=== PATIENT | female | born 1940 | race Caucasian/White ===

== ENCOUNTER → 2019-10-26 09:14 | Outpatient (BNVA) | payer MEDICARE, BC, SELFPAY | PROVIDERS: Family Provider Family Medicine; PCP Family Medicine; Visit Provider Specialist | DX: Z47.1 Aftercare following joint replacement surgery (principal); Z96.653 Presence of artificial knee joint, bilateral | CPT/HCPCS: 73560; 73565 ==

== ENCOUNTER 2019-11-07 06:00 | Outpatient (RCR) | payer MEDICARE, BC, SELFPAY | END 2019-11-10 23:59 | disposition home or self-care (01) | LOC: SPT 06:00 | PROVIDERS: Family Provider Family Medicine; PCP Family Medicine; Visit Provider Specialist | DX: Z47.1 Aftercare following joint replacement surgery (principal); Z96.651 Presence of right artificial knee joint | CPT/HCPCS: 97110; 97162 ==

== ENCOUNTER 2019-11-11 06:00 | Outpatient (RCR) | payer MEDICARE, BC, SELFPAY | END 2019-12-09 23:59 | disposition home or self-care (01) | LOC: SPT 06:00 | PROVIDERS: Family Provider Family Medicine; PCP Family Medicine; Visit Provider Specialist | DX: Z47.89 Encounter for other orthopedic aftercare (principal); Z96.653 Presence of artificial knee joint, bilateral; M25.562 Pain in left knee | CPT/HCPCS: 97110 ==

== ENCOUNTER → 2020-06-10 11:06 | Outpatient (BNVA) | payer MEDICARE, BC, SELFPAY | PROVIDERS: Family Provider Family Medicine; PCP Family Medicine; Referring Provider Dermatology; Visit Provider Dermatology | DX: Z85.828 Personal history of other malignant neoplasm of skin (principal); L71.9 Rosacea, unspecified; L57.0 Actinic keratosis | CPT/HCPCS: 17000; 17003; 99203 ==

== ENCOUNTER 2020-07-03 14:02 | Outpatient (CLI) | payer MEDICARE, BC, SELFPAY ==
[2020-07-03 14:58] LABS: Add Urine Microscopic? YES; Bilirubin Urine 1+ (Negative); Blood Urine Neg (Negative); Glucose Urine UA Norm (Normal); Ketones Urine 1+ (Negative); Leukocyte Esterase Urine Negative (Negative); Nitrate Urine Negative (Negative); Protein Urine Neg (Negative); Specific Gravity, Urine 1.025 (1.005-1.030); Urine Appearance SL Hazy (CLEAR); Urine Color Yellow (Yellow); Urobilinogen Urine Neg (Negative); pH Urine 5 (5-7)
[2020-07-03 14:59] LABS: Bacteria Urine 1+ /hpf; Calcium Oxalate Crystals Urine 0-4 /hpf; Mucus Urine 3+ /hpf; Squamous Epithelial Cell Urine 0-4 /hpf (0-5); WBC Urine 0-4 /hpf (0-5)
[2020-07-03 15:00] LABS: Add Urine Culture? No
== END 2020-07-03 14:03 | disposition home or self-care (01) ==
LOC: LAB 14:08
PROVIDERS: PCP Family Medicine; Visit Provider Family Medicine
DX: N39.0 Urinary tract infection, site not specified (principal)
CPT/HCPCS: 81001; 87086

== ENCOUNTER 2020-07-14 14:01 | Emergency (ER) | payer MEDICARE, BC, SELFPAY ==
[2020-07-14 14:02] VITALS: BP 133/74; PULSE 79; RESP 18; TEMP 36.7; O2SAT 93; BMI 42.5
--- NOTE | 2020-07-14 14:04 | ECG_ITS ---
[facility] Test Date: 2020-07-14 Pat Name: Leatha Weiner Department: Room: Gender: Female [employer] Maker: : 1940 Requested By: Marlene Brennan Order Number: [id number] Jessica MD: Fito Branard M.D. Measurements Intervals Scroggins Rate: 72 P: 53 MD: 160 QRS: 1 QRSD: 92 T: 33 QT: 420 QTc: 462 Interpretive Statements SINUS RHYTHM POSSIBLE LEFT ATRIAL ENLARGEMENT [-0.1mV P WAVE IN V1/V2] MODERATE ST DEPRESSION [0.05+ mV ST DEPRESSION] Compared to ECG 03/17/2019 18:18:09 ST (T wave) deviation now present Electronically Signed On 07-14-2020 20:19:08 CDT by Fito Barnard M.D. [email or web address]
--- NOTE | 2020-07-14 14:04 | CTR_ITS ---
PROCEDURE INFORMATION: Exam: CT Head Without Contrast Exam date and time: 07/14/2020 2:05 PM Age: 80 years old Clinical indication: Speech disturbance and weakness, extremity and weakness, facial; Patient HX: Left side weakness with slurred speech today; Additional info: Symptoms of acute stroke TECHNIQUE: Imaging protocol: Computed tomography of the head without contrast. Radiation optimization: All CT scans at this facility use at least one of these dose optimization techniques: automated exposure control; mA and/or kV adjustment per patient size (includes targeted exams where dose is matched to clinical indication); or iterative reconstruction. COMPARISON: CT head wo con* [id number] 04/14/2019 6:20 PM RADIATION DOSE METRICS: Total DLP (mGy-cm): 830.35 FINDINGS: Brain: There is no acute intracranial hemorrhage. There is lucency in the cerebral white matter, likely microvascular disease although non-specific. Dueñas white differentiation is intact. There are no extra-axial fluid collections. No evidence of mass. There is no mass effect or midline shift. Cerebral ventricles: The ventricles and sulci are enlarged, consistent with volume loss / atrophy. No hydrocephalus. Bones/joints: No acute fracture. Paranasal sinuses: Visualized sinuses are unremarkable. No fluid levels. Mastoid air cells: No significant mastoid effusion. Vasculature: There is vascular calcification. Soft tissues: Unremarkable as visualized. CT/CT head wo con* [id number] IMPRESSION: 1. No evidence of acute intracranial abnormality. No evidence of acute infarction, hemorrhage, or mass. [place] Stroke Program Early CT Score (ASPECTS) = 10. 2. Atrophy and microvascular disease. Radiation Dose CTDIVOL = (mGy): DLP = 830.35 (mGy-cm)
--- NOTE | 2020-07-14 14:12 | ED_ITS ---
HPI - Neuro Symptoms/Deficit General: Chief Complaint: Neuro Symptoms/Deficit Stated Complaint: poss stroke Time Seen by Provider: 07/14/20 14:05 History of Present Illness: HPI Narrative: 80-year-old female presents with some reported left-sided weakness and facial droop. Patient is at the senior living and brought in by EMS. intermediate reports that they noticed it around 115. That by the time EMS arrived her facial droop her weakness had resolved. She does complain of some mild left-sided facial numbness to EMS that resolved prior to arrival to the ER. Patient reports that she has had recurrent similar symptoms for the last couple months. The last Wednesday she saw her physician for this and ordered a bunch of test. She is scheduled to see him again in 2 days. Patient has no complaints at this time. 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 Social History Smoking and tobacco status: never smoked Alcohol intake: never NIH stroke score NIHSS: Level Of Consciousness - 1a: 0 Level Of Consciousness Questions - 1b: Both Correct Level Of Consciousness Commands - 1c: Both Correct Best Gaze - 2: Normal Facial Palsy - 4: Minor Paralysis Motor Arm Right - 5: No Drift Motor Arm Left - 5: No Drift Motor Leg Right - 6: No Drift Motor Leg Left - 6: No Drift Sensory - 8: Normal Best Language - 9: No Aphasia Dysarthia - 10: Normal Extinction And Inattention - 11: 0 Physical Exam Const: COMMON NORMALS: no acute distress, patient oriented x3 and alert GENERAL APPEARANCE: cooperative and comfortable HENMT: COMMON NORMALS: normocephalic, atraumatic and hearing grossly normal bilaterally HEAD & SCALP: normocephalic and atraumatic Neck/C-Spine: COMMON NORMALS: full ROM and no lymphadenopathy Chest: COMMONS NORMALS: normal palpation of entire chest wall Resp: COMMON NORMALS: normal respiratory effort, No retractions and No use of accessory muscles Cardio: COMMON NORMALS: regular rate and regular rhythm RATE: regular rate RHYTHM: regular rhythm GI: COMMON NORMALS: Normal to inspection, nondistended, normoactive bowel sounds present, Soft to palpation and non-tender PALPATION: Yes Soft to palpation : COMMON NORMALS: Yes no CVA tenderness BLADDER/KIDNEY EXAM: Yes no CVA tenderness Back/Pelvis: COMMON NORMALS: no CVA tenderness Extremity: COMMON NORMALS: full ROM Neuro: COMMON NORMALS: patient oriented x3, CN's II-XII intact bilaterally, moves all extremities, no focal motor deficits and no sensory deficits noted SENSORIUM/ORIENTATION: Yes alert Psych: COMMON NORMALS: mental status grossly normal, Normal thought process present, cooperative and normal affect THOUGHT PROCESS: Normal thought process present Skin: COMMON NORMALS: no rashes or lesions noted GENERAL SKIN EXAM: no rashes or lesions noted Course Vital Signs: Vital signs: Vital Signs Temperature 98.0 F 07/14/20 14:02 Pulse Rate 79 07/14/20 14:02 Respiratory Rate 18 07/14/20 14:02 Blood Pressure 133/74 07/14/20 14:02 Pulse Oximetry 93 07/14/20 14:02 MDM - Neuro Symptoms/Deficit MDM Narrative: Medical decision making narrative: Patient history consistent with her recurrent TIAs that she is currently being worked up on an outpatient basis. This time patient has no significant physical finding. She has a negative head CT with no acute findings on her labs. Patient will be discharged back to the senior living. She should keep her appointment Wednesday with her physician to continue to work-up her recurrent symptoms. EKG NSR, hr 72, unspecific changes, no acute findings Lab Data: Attestation: I reviewed the patient's lab results. Labs: Lab Results 07/14/20 07/14/20 07/14/20 Range/Units 14:11 14:11 14:11 WBC 4.9 (4.0-10.0) 10^3/ uL RBC 3.99 L (4.1-5.3) 10^6/u L Hgb 11.8 (11.5-15.3) g/dL Hct 36.9 L (37.0-47.0) % MCV 92.5 (81-99) fL MCH 29.6 (28.0-34.0) pg MCHC 32.0 (30.0-36.0) g/dL RDW 13.8 (12.1-15.1) % Plt Count 302 (130-400) 10^3/c mm MPV 9.2 (7.4-10.4) fL Neut % (Auto) 59.0 % Lymph % (Auto) 28.6 % Larue % (Auto) 11.6 % Eos % (Auto) 0.2 % Baso % (Auto) 0.4 % Neut # (Auto) 2.89 (1.8-7.7) 10^3/u L Lymph # (Auto) 1.4 (0.8-4.8) 10^3/u L Larue # (Auto) 0.6 (0.2-0.9) 10^3/u L Eos # (Auto) 0.0 (0.0-0.8) 10^3/u L Baso # (Auto) 0.0 (0.0-0.1) 10^3/u L Nucleated RBC % (a uto) 0 % Nucleated RBCs # 0.0 /100WBC PT 12.20 (12.1-14.9) SECO NDS INR 0.88 (0.8-1.2) APTT 25.9 (23.9-36.7) SECO NDS Sodium 139 (136-145) mmol/L Potassium 3.7 (3.5-5.1) mmol/L Chloride 102 (98-107) mmol/L Carbon Dioxide 23 (22-29) mmol/L Anion Gap 17.7 (5-19) BUN 18 (8-23) mg/dL Creatinine 0.9 (0.5-0.9) mg/dL GFR Calculation Not Reportable Glucose 141 H (65-115) mg/dL Calculated Osmolal ity 292 (285-295) mOsm/k g Calcium 9.3 (8.5-10.5) mg/dL Total Bilirubin 0.2 (0.15-1.2) mg/dL AST 19 (0-32) U/L ALT 7 (0-33) U/L Alkaline Phosphata se 136 H (35-105) IU/L Total Protein 7.1 (6.6-8.7) g/dL Albumin 3.9 (3.5-5.2) g/dL Globulin 3.2 (1.3-4.6) g/dL Imaging Data^: CT Head: Attestation: I personally reviewed and interpreted this imaging study as follow s: My impression: CT/CT head wo con* [id number] IMPRESSION: 1. No evidence of acute intracranial abnormality. No evidence of acute infarction, hemorrhage, or mass. [place] Stroke Program Early CT Score (ASPECTS) = 10. 2. Atrophy and microvascular disease. Discharge Plan Discharge Patient Disposition: Home Clinical Impression: Transient cerebral ischemia Qualifiers: Transient cerebral ischemia type: other Qualified Code(s): G45.8 - Other transient cerebral ischemic attacks and related syndromes Condition: Stable Prescriptions: No Action carbidopa-levodopa 10-100 mg tablet 1 tab PO BID RF: 0 bisoprolol fumarate 10 mg tablet 10 mg PO QDAY RF: 0 amitriptyline 25 mg tablet 25 mg PO QDAY RF: 0 metronidazole 1 % cream 1 applic TOPICAL .twice daily RF: 0 metronidazole [Metrogel] 1 % gel 1 applic TOPICAL DAILY Qty: 60 RF: 2 Discharge Orders: Discharge Order (Routine); Ordered 07/14/20 Ordered By: Raghavendra Chase Referrals: Christian Caceres MD [Primary Care Provider] - Discharge Diet: Regular Discharge Activity: Resume usual activity Patient Instructions: TIA Activity Restrictions/Additional Instructions: Please keep your already scheduled appointment for Wednesday for continued evaluation of your recurrent TIAs Discharge Date/Time: 07/14/20 17:05 Coding Level of Care Code ED Flexo Operator for Lin Fwd Exam Comprehensive
[2020-07-14 14:22] LABS: Basophils % 0.4 %; Eosinophils % 0.2 %; Hematocrit 36.9 % (37.0-47.0); Hemoglobin 11.8 g/dL (11.5-15.3); Lymphocytes # 1.4 10^3/uL (0.8-4.8); Lymphocytes % 28.6 %; Mean Corpuscular Hemoglobin 29.6 pg (28.0-34.0); Mean Corpuscular Volume 92.5 fL (81-99); Mean Platelet Volume 9.2 fL (7.4-10.4); Monocytes # 0.6 10^3/uL (0.2-0.9); Monocytes % 11.6 %; Neutrophils # 2.89 10^3/uL (1.8-7.7); Nucleated Red Blood Cells % 0 %; Platelet Count 302 10^3/cmm (130-400); Red Blood Count 3.99 10^6/uL (4.1-5.3); Red Cell Distribution Width 13.8 % (12.1-15.1); White Blood Count 4.9 10^3/uL (4.0-10.0)
[2020-07-14 14:41] LABS: Alanine Aminotransferase 7 U/L (0-33); Albumin Level 3.9 g/dL (3.5-5.2); Alkaline Phosphatase 136 IU/L (35-105); Anion Gap 17.7 (5-19); Aspartate Amino Transferase 19 U/L (0-32); Blood Urea Nitrogen 18 mg/dL (8-23); Calcium 9.3 mg/dL (8.5-10.5); Carbon Dioxide 23 mmol/L (22-29); Chloride 102 mmol/L (98-107); Globulin 3.2 g/dL (1.3-4.6); Glucose 141 mg/dL (65-115); Osmolality Calculated 292 mOsm/kg (285-295); Potassium 3.7 mmol/L (3.5-5.1); Sodium 139 mmol/L (136-145); Total Bilirubin 0.2 mg/dL (0.15-1.2); Total Protein 7.1 g/dL (6.6-8.7)
[2020-07-14 14:48] LABS: INR 0.88 (0.8-1.2)
[2020-07-14 14:49] LABS: Partial Thromboplastin Time 25.9 SECONDS (23.9-36.7)
--- NOTE | 2020-07-14 15:59 | PC.NURSE ---
pt report called to Felton ABARCA in SBAR format at [facility].
== END 2020-07-14 17:05 | disposition home or self-care (01) ==
PROVIDERS: Emergency Medicine; Emergency Provider Student in an Organized Health Care Education/Training Program; PCP Family Medicine
DX: G45.8 Other transient cerebral ischemic attacks and related syndromes (principal)
CPT/HCPCS: 12345; 70450; 80053; 85025; 85610; 85730; 93005; 99283; 99284

== ENCOUNTER 2020-07-16 20:17 | Emergency (ER) | payer MEDICARE, BC, SELFPAY ==
[2020-07-16 20:22] VITALS: PULSE 76; RESP 18; TEMP 38.2; O2SAT 93; BMI 22.3
--- NOTE | 2020-07-16 20:28 | XRR_ITS ---
PROCEDURE INFORMATION: Exam: XR Chest, 1 View Exam date and time: 07/16/2020 9:29 PM Age: 80 years old Clinical indication: Shortness of breath; Patient HX: AMS, stroke a few days ago, unable to obtain history; Additional info: SOB, R/O covid TECHNIQUE: Imaging protocol: XR of the chest Views: 1 view. COMPARISON: CR Chest 2 views* [id number] 03/07/2019 2:35 PM FINDINGS: Lungs: Poor inspiration. Decreased lung volumes. There is bibasilar airspace disease, more prominently on the right. This can be due to pneumonia, aspiration, or atelectasis. Pleural space: Trace right pleural effusion versus pleural thickening. No pneumothorax. Heart/Mediastinum: The cardiac silhouette is not enlarged. Vasculature: The thoracic aorta is atherosclerotic and tortuous. Bones/joints: Multilevel disc degeneration in the thoracic spine. XR/XR chest 1V portable [id number] IMPRESSION: Asymmetric bibasilar airspace disease.
[2020-07-16 20:49] LABS: Basophils % 0.2 %; Hematocrit 36.8 % (37.0-47.0); Hemoglobin 11.8 g/dL (11.5-15.3); Lymphocytes # 0.6 10^3/uL (0.8-4.8); Lymphocytes % 9.2 %; Mean Corpuscular HGB Conc 32.1 g/dL (30.0-36.0); Mean Corpuscular Hemoglobin 29.6 pg (28.0-34.0); Mean Corpuscular Volume 92.5 fL (81-99); Mean Platelet Volume 9.3 fL (7.4-10.4); Monocytes # 0.7 10^3/uL (0.2-0.9); Monocytes % 11.3 %; Neutrophils # 5.15 10^3/uL (1.8-7.7); Neutrophils % 78.8 %; Nucleated Red Blood Cells % 0 %; Platelet Count 275 10^3/cmm (130-400); Red Blood Count 3.98 10^6/uL (4.1-5.3); Red Cell Distribution Width 13.9 % (12.1-15.1); White Blood Count 6.5 10^3/uL (4.0-10.0)
--- NOTE | 2020-07-16 21:00 | ED_ITS ---
Documented by User: Altagracia Mathias MD 07/21/20 11:45 HPI - Altered Mental Status General: Chief Complaint: Altered Mental Status Stated Complaint: AMS Time Seen by Provider: 07/16/20 20:21 History of Present Illness: HPI narrative: This patient is an 80-year-old female presenting with altered mental status. She comes from [facility]. She was here a few days ago and diagnosed with a TIA at that time. Per nurses at the facility she has had some alteration in her mental status since then. On arrival today she is noted to have a temperature of 100.8. The patient says she was not aware of having a fever. She said she does feel short of breath and has had some cough. She said she is had some vomiting and diarrhea. She says her symptoms have been going on for a couple of days. There have been positive COVID tests in her facility. 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 Social History Smoking and tobacco status: never smoked Alcohol intake: never Physical Exam Const: COMMON NORMALS: no acute distress, no limitations and alert GENERAL APPEARANCE: cooperative and comfortable ORIENTATION/CONSCIOUSNESS: Yes oriented to person, Yes oriented to place and Yes oriented to time HENMT: HEAD & SCALP: normal to inspection FACE & SINUS: normal facial exam Eye: GENERAL EYE: appearance normal, both eyes and all related structures Neck/C-Spine: COMMON NORMALS: supple, no meningeal signs and no JVD Chest: COMMONS NORMALS: normal inspection of the chest Resp: COMMON NORMALS: clear to auscultation bilaterally EFFORT & INSPECTION: Yes tachypneic, Yes labored and Yes uses accessory muscles AUSCULTATION: clear to auscultation bilaterally Cardio: COMMON NORMALS: no JVD, regular rate, regular rhythm and No murmurs present (Cardio) RATE: regular rate RHYTHM: regular rhythm GI: COMMON NORMALS: Normal to inspection, nondistended, normoactive bowel sounds present, Soft to palpation and non-tender INSPECTION: Yes normal to inspection AUSCULTATION: Yes normoactive bowel sounds PALPATION: Yes Soft to palpation Back/Pelvis: COMMON NORMALS: thoracic and lumbar spine normal to inspection Extremity: COMMON NORMALS: normal to inspection Neuro: COMMON NORMALS: moves all extremities, no focal motor deficits and no sensory deficits noted SENSORIUM/ORIENTATION: Yes alert, Yes oriented to person, Yes oriented to place, Yes oriented to time and Yes other (Seems oriented but then says strange things like that she was here 2 days ago with a stroke that the stroke happened in the constitution party area with all the bars.) MENINGEAL SIGNS: Yes no meningeal signs Psych: COMMON NORMALS: mental status grossly normal, cooperative and normal affect Skin: COMMON NORMALS: no rashes or lesions noted and turgor normal GENERAL SKIN EXAM: no rashes or lesions noted and turgor normal Course ED course: Ms. Weiner is COVID test came back positive. Her chest x-ray shows some infiltrate in the bases. Her labs are consistent with COVID as well. She is not requiring oxygen at this time. Her sats 93% on room air. She is sleeping. I spoke to the nurse at [facility], which is an assisted living facility, and she says that they are not able to care for her at [facility] because she is too weak to be able to do her own ADLs. She said this is been a progressive weakness that is developed over the last 2 days. The level of care she now requires is too high for her to go back to the assisted living facility. I spoke with the charge nurse here in the ER as well as correctional casework specialist and we feel like the best thing to do for this patient is to keep her in the ER overnight and try to place her in a custodial facility tomorrow. Vital Signs: Vital signs: Vital Signs Temperature 98.6 F 07/17/20 06:33 Pulse Rate 103 H 07/17/20 09:25 Respiratory Rate 20 H 07/17/20 09:25 Blood Pressure 150/76 07/17/20 09:25 Pulse Oximetry 96 07/17/20 09:25 MDM - Altered Mental Status Lab Data: Labs: Lab Results 07/16/20 07/16/20 07/16/20 Range/Units 20:43 20:43 20:43 WBC 6.5 (4.0-10.0) 10^3/ uL RBC 3.98 L (4.1-5.3) 10^6/u L Hgb 11.8 (11.5-15.3) g/dL Hct 36.8 L (37.0-47.0) % MCV 92.5 (81-99) fL MCH 29.6 (28.0-34.0) pg MCHC 32.1 (30.0-36.0) g/dL RDW 13.9 (12.1-15.1) % Plt Count 275 (130-400) 10^3/c mm MPV 9.3 (7.4-10.4) fL Neut % (Auto) 78.8 % Lymph % (Auto) 9.2 % [place] % (Auto) 11.3 % Eos % (Auto) 0.0 % Baso % (Auto) 0.2 % Neut # (Auto) 5.15 (1.8-7.7) 10^3/u L Lymph # (Auto) 0.6 L (0.8-4.8) 10^3/u L [place] # (Auto) 0.7 (0.2-0.9) 10^3/u L Eos # (Auto) 0.0 (0.0-0.8) 10^3/u L Baso # (Auto) 0.0 (0.0-0.1) 10^3/u L Nucleated RBC % (a uto) 0 % Nucleated RBCs # 0.0 /100WBC PT 13.00 (12.1-14.9) SECO NDS INR 0.95 (0.8-1.2) Fibrinogen 640 H (174-498) mg/dL D-Dimer 0.90 H (0-0.59) ug/mIFE U Sodium 133 L (136-145) mmol/L Potassium 3.6 (3.5-5.1) mmol/L Chloride 96 L (98-107) mmol/L Carbon Dioxide 24 (22-29) mmol/L Anion Gap 16.6 (5-19) BUN 28 H (8-23) mg/dL Creatinine 1.0 H (0.5-0.9) mg/dL GFR Calculation Not Reportable Glucose 116 H (65-115) mg/dL Calculated Osmolal ity 282 L (285-295) mOsm/k g Lactic Acid (0.5-2.2) mmol/L Calcium 8.9 (8.5-10.5) mg/dL Magnesium 2.1 (1.7-2.3) mg/dL Total Bilirubin 0.4 (0.15-1.2) mg/dL AST 31 (0-32) U/L ALT < 5 (0-33) U/L Alkaline Phosphata se 144 H (35-105) IU/L Lactate Dehydrogen ase 201 (135-214) U/L C-Reactive Protein 119.4 H (0.0-4.9) mg/L NT-Pro-B Natriuret Pep 578 H (0-450) pg/mL Total Protein 7.7 (6.6-8.7) g/dL Albumin 4.2 (3.5-5.2) g/dL Globulin 3.5 (1.3-4.6) g/dL Procalcitonin 0.46 (0-0.5) ng/mL Influenza Type A A g (Negative) Influenza Type B A g (Negative) SARS-CoV-2 Ag (Rap id) (Negative) 07/16/20 07/16/20 07/16/20 Range/Units 20:43 20:43 20:43 WBC (4.0-10.0) 10^3/ uL RBC (4.1-5.3) 10^6/u L Hgb (11.5-15.3) g/dL Hct (37.0-47.0) % MCV (81-99) fL MCH (28.0-34.0) pg MCHC (30.0-36.0) g/dL RDW (12.1-15.1) % Plt Count (130-400) 10^3/c mm MPV (7.4-10.4) fL Neut % (Auto) % Lymph % (Auto) % [place] % (Auto) % Eos % (Auto) % Baso % (Auto) % Neut # (Auto) (1.8-7.7) 10^3/u L Lymph # (Auto) (0.8-4.8) 10^3/u L [place] # (Auto) (0.2-0.9) 10^3/u L Eos # (Auto) (0.0-0.8) 10^3/u L Baso # (Auto) (0.0-0.1) 10^3/u L Nucleated RBC % (a uto) % Nucleated RBCs # /100WBC PT (12.1-14.9) SECO NDS INR (0.8-1.2) Fibrinogen (174-498) mg/dL D-Dimer (0-0.59) ug/mIFE U Sodium (136-145) mmol/L Potassium (3.5-5.1) mmol/L Chloride (98-107) mmol/L Carbon Dioxide (22-29) mmol/L Anion Gap (5-19) BUN (8-23) mg/dL Creatinine (0.5-0.9) mg/dL GFR Calculation Glucose (65-115) mg/dL Calculated Osmolal ity (285-295) mOsm/k g Lactic Acid 1.0 (0.5-2.2) mmol/L Calcium (8.5-10.5) mg/dL Magnesium (1.7-2.3) mg/dL Total Bilirubin (0.15-1.2) mg/dL AST (0-32) U/L ALT (0-33) U/L Alkaline Phosphata se (35-105) IU/L Lactate Dehydrogen ase (135-214) U/L C-Reactive Protein (0.0-4.9) mg/L NT-Pro-B Natriuret Pep (0-450) pg/mL Total Protein (6.6-8.7) g/dL Albumin (3.5-5.2) g/dL Globulin (1.3-4.6) g/dL Procalcitonin (0-0.5) ng/mL Influenza Type A A g Negative (Negative) Influenza Type B A g Negative (Negative) SARS-CoV-2 Ag (Rap id) Positive H (Negative) Discharge Plan Discharge Patient Disposition: Home Clinical Impression: COVID-19 virus infection, Transient cerebral ischemia Condition: Stable Prescriptions: No Action carbidopa-levodopa 10-100 mg tablet 1 tab PO BID RF: 0 bisoprolol fumarate 10 mg tablet 10 mg PO QDAY RF: 0 amitriptyline 25 mg tablet 25 mg PO QDAY RF: 0 metronidazole 1 % cream 1 applic TOPICAL .twice daily RF: 0 metronidazole [Metrogel] 1 % gel 1 applic TOPICAL DAILY Qty: 60 RF: 2 Discharge Orders: Discharge Order (Routine); Ordered 07/17/20 Ordered By: Reggie Nesbitt Referrals: Christian Caceres MD [Primary Care Provider] - Discharge Diet: Usual diet Discharge Activity: Limit activity as instructed Activity Restrictions/Additional Instructions: Minimize exertional activities. Return to the emergency room if you have any recurrence or worsening of shortness of breath. O2 sat monitoring recommended every 4 to 6 hours while awake. Discharge Date/Time: 07/17/20 09:25 Sign Out Sign Out Data: Patient Sign Out occurred on 07/16/20 at 23:27. Patient's care was discussed, and care was transferred from to Akua Collins. Patient Sign Out occurred on 07/17/20 at 06:39. Patient's care was discussed, and care was transferred from to Reggie Nesbitt DO. 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 Social History Smoking and tobacco status: never smoked Alcohol intake: never Course Vital Signs: Vital signs: Vital Signs Temperature 98.6 F 07/17/20 06:33 Pulse Rate 103 H 07/17/20 09:25 Respiratory Rate 20 H 07/17/20 09:25 Blood Pressure 150/76 07/17/20 09:25 Pulse Oximetry 96 07/17/20 09:25 MDM - Altered Mental Status Lab Data: Labs: Lab Results 07/16/20 07/16/20 07/16/20 Range/Units 20:43 20:43 20:43 WBC 6.5 (4.0-10.0) 10^3/ uL RBC 3.98 L (4.1-5.3) 10^6/u L Hgb 11.8 (11.5-15.3) g/dL Hct 36.8 L (37.0-47.0) % MCV 92.5 (81-99) fL MCH 29.6 (28.0-34.0) pg MCHC 32.1 (30.0-36.0) g/dL RDW 13.9 (12.1-15.1) % Plt Count 275 (130-400) 10^3/c mm MPV 9.3 (7.4-10.4) fL Neut % (Auto) 78.8 % Lymph % (Auto) 9.2 % [place] % (Auto) 11.3 % Eos % (Auto) 0.0 % Baso % (Auto) 0.2 % Neut # (Auto) 5.15 (1.8-7.7) 10^3/u L Lymph # (Auto) 0.6 L (0.8-4.8) 10^3/u L [place] # (Auto) 0.7 (0.2-0.9) 10^3/u L Eos # (Auto) 0.0 (0.0-0.8) 10^3/u L Baso # (Auto) 0.0 (0.0-0.1) 10^3/u L Nucleated RBC % (a uto) 0 % Nucleated RBCs # 0.0 /100WBC PT 13.00 (12.1-14.9) SECO NDS INR 0.95 (0.8-1.2) Fibrinogen 640 H (174-498) mg/dL D-Dimer 0.90 H (0-0.59) ug/mIFE U Sodium 133 L (136-145) mmol/L Potassium 3.6 (3.5-5.1) mmol/L Chloride 96 L (98-107) mmol/L Carbon Dioxide 24 (22-29) mmol/L Anion Gap 16.6 (5-19) BUN 28 H (8-23) mg/dL Creatinine 1.0 H (0.5-0.9) mg/dL GFR Calculation Not Reportable Glucose 116 H (65-115) mg/dL Calculated Osmolal ity 282 L (285-295) mOsm/k g Lactic Acid (0.5-2.2) mmol/L Calcium 8.9 (8.5-10.5) mg/dL Magnesium 2.1 (1.7-2.3) mg/dL Total Bilirubin 0.4 (0.15-1.2) mg/dL AST 31 (0-32) U/L ALT < 5 (0-33) U/L Alkaline Phosphata se 144 H (35-105) IU/L Lactate Dehydrogen ase 201 (135-214) U/L C-Reactive Protein 119.4 H (0.0-4.9) mg/L NT-Pro-B Natriuret Pep 578 H (0-450) pg/mL Total Protein 7.7 (6.6-8.7) g/dL Albumin 4.2 (3.5-5.2) g/dL Globulin 3.5 (1.3-4.6) g/dL Procalcitonin 0.46 (0-0.5) ng/mL Influenza Type A A g (Negative) Influenza Type B A g (Negative) SARS-CoV-2 Ag (Rap id) (Negative) 07/16/20 07/16/20 07/16/20 Range/Units 20:43 20:43 20:43 WBC (4.0-10.0) 10^3/ uL RBC (4.1-5.3) 10^6/u L Hgb (11.5-15.3) g/dL Hct (37.0-47.0) % MCV (81-99) fL MCH (28.0-34.0) pg MCHC (30.0-36.0) g/dL RDW (12.1-15.1) % Plt Count (130-400) 10^3/c mm MPV (7.4-10.4) fL Neut % (Auto) % Lymph % (Auto) % [place] % (Auto) % Eos % (Auto) % Baso % (Auto) % Neut # (Auto) (1.8-7.7) 10^3/u L Lymph # (Auto) (0.8-4.8) 10^3/u L [place] # (Auto) (0.2-0.9) 10^3/u L Eos # (Auto) (0.0-0.8) 10^3/u L Baso # (Auto) (0.0-0.1) 10^3/u L Nucleated RBC % (a uto) % Nucleated RBCs # /100WBC PT (12.1-14.9) SECO NDS INR (0.8-1.2) Fibrinogen (174-498) mg/dL D-Dimer (0-0.59) ug/mIFE U Sodium (136-145) mmol/L Potassium (3.5-5.1) mmol/L Chloride (98-107) mmol/L Carbon Dioxide (22-29) mmol/L Anion Gap (5-19) BUN (8-23) mg/dL Creatinine (0.5-0.9) mg/dL GFR Calculation Glucose (65-115) mg/dL Calculated Osmolal ity (285-295) mOsm/k g Lactic Acid 1.0 (0.5-2.2) mmol/L Calcium (8.5-10.5) mg/dL Magnesium (1.7-2.3) mg/dL Total Bilirubin (0.15-1.2) mg/dL AST (0-32) U/L ALT (0-33) U/L Alkaline Phosphata se (35-105) IU/L Lactate Dehydrogen ase (135-214) U/L C-Reactive Protein (0.0-4.9) mg/L NT-Pro-B Natriuret Pep (0-450) pg/mL Total Protein (6.6-8.7) g/dL Albumin (3.5-5.2) g/dL Globulin (1.3-4.6) g/dL Procalcitonin (0-0.5) ng/mL Influenza Type A A g Negative (Negative) Influenza Type B A g Negative (Negative) SARS-CoV-2 Ag (Rap id) Positive H (Negative) Discharge Plan Discharge Patient Disposition: Home Clinical Impression: COVID-19 virus infection, Transient cerebral ischemia Condition: Stable Prescriptions: No Action carbidopa-levodopa 10-100 mg tablet 1 tab PO BID RF: 0 bisoprolol fumarate 10 mg tablet 10 mg PO QDAY RF: 0 amitriptyline 25 mg tablet 25 mg PO QDAY RF: 0 metronidazole 1 % cream 1 applic TOPICAL .twice daily RF: 0 metronidazole [Metrogel] 1 % gel 1 applic TOPICAL DAILY Qty: 60 RF: 2 Discharge Orders: Discharge Order (Routine); Ordered 07/17/20 Ordered By: Reggie Nesbitt Referrals: Christian Caceres MD [Primary Care Provider] - Discharge Diet: Usual diet Discharge Activity: Limit activity as instructed Activity Restrictions/Additional Instructions: Minimize exertional activities. Return to the emergency room if you have any recurrence or worsening of shortness of breath. O2 sat monitoring recommended every 4 to 6 hours while awake. Discharge Date/Time: 07/17/20 09:25 Sign Out Sign Out Data: Patient Sign Out occurred on 07/16/20 at 23:27. Patient's care was discussed, and care was transferred from to Akua Collins. Patient Sign Out occurred on 07/17/20 at 06:39. Patient's care was discussed, and care was transferred from to Reggie Nesbitt DO. 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 Gannon chart reviewed. We sought the assistance of case management and were able [facility] Vital Signs: Vital signs: Vital Signs Temperature 98.6 F 07/17/20 06:33 Pulse Rate 103 H 07/17/20 09:25 Respiratory Rate 20 H 07/17/20 09:25 Blood Pressure 150/76 07/17/20 09:25 Pulse Oximetry 96 07/17/20 09:25 MDM - Altered Mental Status Lab Data: Labs: Lab Results 07/16/20 07/16/20 07/16/20 Range/Units 20:43 20:43 20:43 WBC 6.5 (4.0-10.0) 10^3/ uL RBC 3.98 L (4.1-5.3) 10^6/u L Hgb 11.8 (11.5-15.3) g/dL Hct 36.8 L (37.0-47.0) % MCV 92.5 (81-99) fL MCH 29.6 (28.0-34.0) pg MCHC 32.1 (30.0-36.0) g/dL RDW 13.9 (12.1-15.1) % Plt Count 275 (130-400) 10^3/c mm MPV 9.3 (7.4-10.4) fL Neut % (Auto) 78.8 % Lymph % (Auto) 9.2 % [place] % (Auto) 11.3 % Eos % (Auto) 0.0 % Baso % (Auto) 0.2 % Neut # (Auto) 5.15 (1.8-7.7) 10^3/u L Lymph # (Auto) 0.6 L (0.8-4.8) 10^3/u L [place] # (Auto) 0.7 (0.2-0.9) 10^3/u L Eos # (Auto) 0.0 (0.0-0.8) 10^3/u L Baso # (Auto) 0.0 (0.0-0.1) 10^3/u L Nucleated RBC % (a uto) 0 % Nucleated RBCs # 0.0 /100WBC PT 13.00 (12.1-14.9) SECO NDS INR 0.95 (0.8-1.2) Fibrinogen 640 H (174-498) mg/dL D-Dimer 0.90 H (0-0.59) ug/mIFE U Sodium 133 L (136-145) mmol/L Potassium 3.6 (3.5-5.1) mmol/L Chloride 96 L (98-107) mmol/L Carbon Dioxide 24 (22-29) mmol/L Anion Gap 16.6 (5-19) BUN 28 H (8-23) mg/dL Creatinine 1.0 H (0.5-0.9) mg/dL GFR Calculation Not Reportable Glucose 116 H (65-115) mg/dL Calculated Osmolal ity 282 L (285-295) mOsm/k g Lactic Acid (0.5-2.2) mmol/L Calcium 8.9 (8.5-10.5) mg/dL Magnesium 2.1 (1.7-2.3) mg/dL Total Bilirubin 0.4 (0.15-1.2) mg/dL AST 31 (0-32) U/L ALT < 5 (0-33) U/L Alkaline Phosphata se 144 H (35-105) IU/L Lactate Dehydrogen ase 201 (135-214) U/L C-Reactive Protein 119.4 H (0.0-4.9) mg/L NT-Pro-B Natriuret Pep 578 H (0-450) pg/mL Total Protein 7.7 (6.6-8.7) g/dL Albumin 4.2 (3.5-5.2) g/dL Globulin 3.5 (1.3-4.6) g/dL Procalcitonin 0.46 (0-0.5) ng/mL Influenza Type A A g (Negative) Influenza Type B A g (Negative) SARS-CoV-2 Ag (Rap id) (Negative) 07/16/20 07/16/20 07/16/20 Range/Units 20:43 20:43 20:43 WBC (4.0-10.0) 10^3/ uL RBC (4.1-5.3) 10^6/u L Hgb (11.5-15.3) g/dL Hct (37.0-47.0) % MCV (81-99) fL MCH (28.0-34.0) pg MCHC (30.0-36.0) g/dL RDW (12.1-15.1) % Plt Count (130-400) 10^3/c mm MPV (7.4-10.4) fL Neut % (Auto) % Lymph % (Auto) % [place] % (Auto) % Eos % (Auto) % Baso % (Auto) % Neut # (Auto) (1.8-7.7) 10^3/u L Lymph # (Auto) (0.8-4.8) 10^3/u L [place] # (Auto) (0.2-0.9) 10^3/u L Eos # (Auto) (0.0-0.8) 10^3/u L Baso # (Auto) (0.0-0.1) 10^3/u L Nucleated RBC % (a uto) % Nucleated RBCs # /100WBC PT (12.1-14.9) SECO NDS INR (0.8-1.2) Fibrinogen (174-498) mg/dL D-Dimer (0-0.59) ug/mIFE U Sodium (136-145) mmol/L Potassium (3.5-5.1) mmol/L Chloride (98-107) mmol/L Carbon Dioxide (22-29) mmol/L Anion Gap (5-19) BUN (8-23) mg/dL Creatinine (0.5-0.9) mg/dL GFR Calculation Glucose (65-115) mg/dL Calculated Osmolal ity (285-295) mOsm/k g Lactic Acid 1.0 (0.5-2.2) mmol/L Calcium (8.5-10.5) mg/dL Magnesium (1.7-2.3) mg/dL Total Bilirubin (0.15-1.2) mg/dL AST (0-32) U/L ALT (0-33) U/L Alkaline Phosphata se (35-105) IU/L Lactate Dehydrogen ase (135-214) U/L C-Reactive Protein (0.0-4.9) mg/L NT-Pro-B Natriuret Pep (0-450) pg/mL Total Protein (6.6-8.7) g/dL Albumin (3.5-5.2) g/dL Globulin (1.3-4.6) g/dL Procalcitonin (0-0.5) ng/mL Influenza Type A A g Negative (Negative) Influenza Type B A g Negative (Negative) SARS-CoV-2 Ag (Rap id) Positive H (Negative) Discharge Plan Discharge Patient Disposition: Home Clinical Impression: COVID-19 virus infection, Transient cerebral ischemia Condition: Stable Prescriptions: No Action carbidopa-levodopa 10-100 mg tablet 1 tab PO BID RF: 0 bisoprolol fumarate 10 mg tablet 10 mg PO QDAY RF: 0 amitriptyline 25 mg tablet 25 mg PO QDAY RF: 0 metronidazole 1 % cream 1 applic TOPICAL .twice daily RF: 0 metronidazole [Metrogel] 1 % gel 1 applic TOPICAL DAILY Qty: 60 RF: 2 Discharge Orders: Discharge Order (Routine); Ordered 07/17/20 Ordered By: Reggei Nesbitt Referrals: Christian Caceres MD [Primary Care Provider] - Discharge Diet: Usual diet Discharge Activity: Limit activity as instructed Activity Restrictions/Additional Instructions: Minimize exertional activities. Return to the emergency room if you have any recurrence or worsening of shortness of breath. O2 sat monitoring recommended every 4 to 6 hours while awake. Discharge Date/Time: 07/17/20 09:25 Sign Out Sign Out Data: Patient Sign Out occurred on 07/16/20 at 23:27. Patient's care was discussed, and care was transferred from to Akua Collins. Patient Sign Out occurred on 07/17/20 at 06:39. Patient's care was discussed, and care was transferred from to Reggie Nesbitt DO. Coding Level of Care Code ED Retail Representative for Chg Fwd Exam Comprehensive
[2020-07-16 21:03] LABS: INR 0.95 (0.8-1.2)
[2020-07-16 21:04] LABS: Fibrinogen 640 mg/dL (174-498)
[2020-07-16 21:21] LABS: NT Pro B Type Natriuretic Pept 578 pg/mL (0-450); Procalcitonin 0.46 ng/mL (0-0.5)
[2020-07-16 21:32] LABS: Alanine Aminotransferase < 5 U/L (0-33); Albumin Level 4.2 g/dL (3.5-5.2); Alkaline Phosphatase 144 IU/L (35-105); Anion Gap 16.6 (5-19); Aspartate Amino Transferase 31 U/L (0-32); Blood Urea Nitrogen 28 mg/dL (8-23); C Reactive Protein 119.4 mg/L (0.0-4.9); Calcium 8.9 mg/dL (8.5-10.5); Carbon Dioxide 24 mmol/L (22-29); Chloride 96 mmol/L (98-107); Globulin 3.5 g/dL (1.3-4.6); Glucose 116 mg/dL (65-115); Lactate Dehydrogenase 201 U/L (135-214); Magnesium 2.1 mg/dL (1.7-2.3); Osmolality Calculated 282 mOsm/kg (285-295); Potassium 3.6 mmol/L (3.5-5.1); Sodium 133 mmol/L (136-145); Total Bilirubin 0.4 mg/dL (0.15-1.2); Total Protein 7.7 g/dL (6.6-8.7)
[2020-07-16 22:05] VITALS: BP 140/67; PULSE 85; RESP 18; O2SAT 91
--- NOTE | 2020-07-16 22:26 | PC.NURSE ---
Pt resting quietly in room with eyes closed, appears in no distress. Breathing appears even and unlabored. No needs identified, will continue to monitor.
[2020-07-16 22:41] LABS: Influenza A by IFA Negative (Negative); Influenza B by IFA Negative (Negative); SARS Covid-2 Antigen Positive (Negative)
[2020-07-16] MEDS: acetaminophen 500 mg Tablet 1000 MG PO (23:00)
[2020-07-17] VITALS (9 sets, daily range): BP systolic 113–169; BP diastolic 64–90; PULSE 60–103; RESP 16–20; TEMP 37–37.1; O2SAT 90–96
--- NOTE | 2020-07-17 01:04 | PC.SOCIAL ---
Spoke to Dr. Mathias at 11:00pm. Reports patient lives at [facility]. She had been able to get around in a wheelchair and transfer herself. She has gotten much weaker and is no longer able to transfer so [facility] cannot take her back. She is also COVID+ but that is not why they will not accept back. Patient is confused at this time and cannot discuss choices at this time for SNF. Too late in the evening to call family. She was in the ED a few days ago with a suspected TIA. Attempted to call her insurance [employer] to see if they required a 3 midnight stay for coverage but they were not open. Will be available at 8:00am. Dr. Mathias reports they will keep patient in the ED overnight until SNF placement can be arranged as she does not meet criteria for inpatient care.
--- NOTE | 2020-07-17 08:35 | PC.SOCIAL ---
Patient does not meet criteria for admission. Patient will need to be discharged back to her home [facility]. Discussed with [facility] that patient does not meet admission criteria for obs or inpatient. She will need to return and [facility] work on other placement options if not suitable for assisted living. Patient has BCBS which can take up to 3 days for an auth and will need therapy evals to support need. Since patient is not being admitted this will need to be worked on as an outpatient will update [facility].
--- NOTE | 2020-07-17 10:30 | DCPLANNER ---
gift manager was asked to fax patients information to [facility] and call [facility], and let him know that the information was faxed to the facility. Transportation was also arranged with [facility] transportation, Yaneli Mehta approved this transportation trip with [facility] transport.
== END 2020-07-17 09:25 | disposition home or self-care (01) ==
PROVIDERS: Emergency Medicine; Emergency Provider Family Medicine; PCP Family Medicine
DX: U07.1 COVID-19 (principal); G45.9 Transient cerebral ischemic attack, unspecified; G20 Parkinson's disease; I70.0 Atherosclerosis of aorta
CPT/HCPCS: 12345; 71045; 80053; 83605; 83615; 83735; 83880; 84145; 85025; 85378; 85384; 85610; 86140; 87426; 87804; 99284

== ENCOUNTER 2020-07-30 18:50 | Outpatient (CLI) | payer MEDICARE, BC, SELFPAY ==
[2020-07-30 21:03] LABS: Urine Color Yellow (Yellow)
[2020-07-30 21:04] LABS: Bilirubin Urine Neg (Negative); Blood Urine Neg (Negative); Glucose Urine UA Norm (Normal); Ketones Urine 2+ (Negative); Nitrate Urine Negative (Negative); Protein Urine 1+ (Negative); Urine Appearance Clear (CLEAR)
[2020-07-30 21:05] LABS: Add Urine Microscopic? YES; Leukocyte Esterase Urine Trace (Negative); Urobilinogen Urine 1 mg/dL (Negative)
[2020-07-30 21:06] LABS: Bacteria Urine 2+ /hpf; Mucus Urine 3+ /hpf; RBC Urine 0-4 /hpf (0-2)
[2020-07-30 21:07] LABS: Add Urine Culture? Yes
== END 2020-07-30 18:51 | disposition home or self-care (01) ==
LOC: LAB 18:52
PROVIDERS: PCP Family Medicine; Visit Provider Nurse Practitioner Family
DX: R41.82 Altered mental status, unspecified (principal); I10 Essential (primary) hypertension
CPT/HCPCS: 81001; 85025; 87086

== ENCOUNTER 2020-07-31 12:05 | Outpatient (CLI) | payer MEDICARE, BC, SELFPAY ==
[2020-07-31 13:42] LABS: Basophils % 0.5 %; Eosinophils % 0.3 %; Hematocrit 35.4 % (37.0-47.0); Hemoglobin 11.2 g/dL (11.5-15.3); Lymphocytes # 1.1 10^3/uL (0.8-4.8); Lymphocytes % 17.4 %; Mean Corpuscular HGB Conc 31.6 g/dL (30.0-36.0); Mean Corpuscular Hemoglobin 29.3 pg (28.0-34.0); Mean Corpuscular Volume 92.7 fL (81-99); Mean Platelet Volume 9.7 fL (7.4-10.4); Monocytes # 0.7 10^3/uL (0.2-0.9); Neutrophils # 4.49 10^3/uL (1.8-7.7); Neutrophils % 69.7 %; Nucleated Red Blood Cells % 0 %; Platelet Count 602 10^3/cmm (130-400); Red Blood Count 3.82 10^6/uL (4.1-5.3); Red Cell Distribution Width 13.9 % (12.1-15.1); White Blood Count 6.4 10^3/uL (4.0-10.0)
[2020-07-31 14:04] LABS: Alanine Aminotransferase < 5 U/L (0-33); Albumin Level 3.7 g/dL (3.5-5.2); Alkaline Phosphatase 144 IU/L (35-105); Anion Gap 17.2 (5-19); Aspartate Amino Transferase 13 U/L (0-32); Blood Urea Nitrogen 13 mg/dL (8-23); Calcium 9.6 mg/dL (8.5-10.5); Carbon Dioxide 23 mmol/L (22-29); Chloride 97 mmol/L (98-107); Globulin 3.5 g/dL (1.3-4.6); Glucose 114 mg/dL (65-115); Osmolality Calculated 279 mOsm/kg (285-295); Potassium 3.2 mmol/L (3.5-5.1); Sodium 134 mmol/L (136-145); Total Bilirubin 0.4 mg/dL (0.15-1.2); Total Protein 7.2 g/dL (6.6-8.7)
== END 2020-07-31 12:06 | disposition home or self-care (01) ==
LOC: LAB 13:54
PROVIDERS: PCP Family Medicine; Visit Provider Nurse Practitioner Family
DX: D64.9 Anemia, unspecified (principal); I10 Essential (primary) hypertension; N39.0 Urinary tract infection, site not specified; R41.82 Altered mental status, unspecified
CPT/HCPCS: 80053; 85025

== ENCOUNTER 2020-10-09 06:49 | Outpatient (CLI) | payer MEDICARE, BC, SELFPAY ==
[2020-10-09 08:04] LABS: Add Urine Microscopic? YES; Bacteria Urine 1+ /hpf; Bilirubin Urine 1+ (Negative); Blood Urine Neg (Negative); Calcium Oxalate Crystals Urine 0-4 /hpf; Glucose Urine UA Norm (Normal); Ketones Urine 1+ (Negative); Leukocyte Esterase Urine Trace (Negative); Mucus Urine 1+ /hpf; Nitrate Urine Negative (Negative); Protein Urine Neg (Negative); Squamous Epithelial Cell Urine 25-40 /hpf (0-5); Urine Appearance SL Hazy (CLEAR); Urine Color Yellow (Yellow); Urobilinogen Urine Norm (Negative); WBC Urine 15-25 /hpf (0-5)
[2020-10-09 08:05] LABS: Add Urine Culture? No
== END 2020-10-09 06:50 | disposition home or self-care (01) ==
PROVIDERS: PCP Family Medicine; Visit Provider Family Medicine
DX: N39.0 Urinary tract infection, site not specified (principal)
CPT/HCPCS: 81001; 87077; 87086; 87186

== ENCOUNTER 2020-10-29 13:19 | Outpatient (CLI) | payer MEDICARE, BC, SELFPAY ==
[2020-10-29 14:05] LABS: Urine Appearance Hazy (CLEAR); Urine Color Yellow (Yellow)
[2020-10-29 14:06] LABS: Bilirubin Urine Neg (Negative); Blood Urine Neg (Negative); Glucose Urine UA Norm (Normal); Ketones Urine Negative (Negative); Nitrate Urine Negative (Negative); Protein Urine Neg (Negative); pH Urine 8 (5-7)
[2020-10-29 14:18] LABS: Add Urine Microscopic? YES; Leukocyte Esterase Urine Negative (Negative); Sulfosalicylic Acid Urine Positive (Negative); Urobilinogen Urine Norm (Negative)
[2020-10-29 14:20] LABS: Add Urine Culture? No; Amorphous Sediment Urine 3+ /hpf; Bacteria Urine 1+ /hpf; RBC Urine 0-4 /hpf (0-2); Transitional Epi Cells Urine 0-4 /hpf
== END 2020-10-29 13:20 | disposition home or self-care (01) ==
PROVIDERS: PCP Family Medicine; Visit Provider Nurse Practitioner Family
DX: N39.0 Urinary tract infection, site not specified (principal)
CPT/HCPCS: 81001; 87086

== ENCOUNTER 2020-10-29 16:36 | Emergency (ER) | payer MEDICARE, BC, SELFPAY ==
[2020-10-29] VITALS (9 sets, daily range): BP systolic 160–195; BP diastolic 49–120; PULSE 67–92; RESP 15–26; TEMP 36.8; O2SAT 96–99; BMI 22.3
--- NOTE | 2020-10-29 17:15 | XR_ITS ---
WS: [id number] Portable AP upright chest, 10/29/2020 Clinical Data: tachypnea Comparison: Portable chest, 07/16/2020. Findings: No nodules, masses or effusions are seen. The heart is normal. The pulmonary vascularity is not increased. No pneumonia or pneumothorax is seen. The aortic arch and descending aorta show calci fication and tortuosity. XR/XR chest 1V portable [id number] Impression: Atherosclerosis.
--- NOTE | 2020-10-29 17:15 | CTR_ITS ---
PROCEDURE INFORMATION: Exam: CT Head Without Contrast Exam date and time: 10/29/2020 5:35 PM Age: 80 years old Clinical indication: Altered mental status/memory loss; Additional info: Altered mental status. Fall 1 week ago TECHNIQUE: Imaging protocol: Computed tomography of the head without contrast. Sagittal and coronal reformatted images were created and reviewed. Radiation optimization: All CT scans at this facility use at least one of these dose optimization techniques: automated exposure control; mA and/or kV adjustment per patient size (includes targeted exams where dose is matched to clinical indication); or iterative reconstruction. COMPARISON: CT head wo con* [id number] 07/14/2020 1:59 PM RADIATION DOSE METRICS: Total DLP (mGy-cm): 1681.28 FINDINGS: Brain: No acute intracranial hemorrhage. No acute infarct. No intra-axial or extra-axial masses. Dueñas-white matter differentiation is preserved. No cerebral edema. No extra-axial fluid collections. No midline shift. No evidence for Chiari 1 malformation. Stable mild atrophy of the brain parenchyma. Stable mildly decreased attenuation in the deep white matter, consistent with mild chronic microangiopathic change. Cerebral ventricles: No hydrocephalus. Bones/joints: No acute fracture. Paranasal sinuses: Visualized paranasal sinuses are clear. Mastoid air cells: Unremarkable as visualized. Orbital cavity: Globes and lenses, extraocular muscles, and optic nerves are intact bilaterally. No acute intraorbital abnormality. Bilateral scleral calcifications. Vasculature: Atherosclerotic changes in the visualized arteries. Soft tissues: The extracranial soft tissues are unremarkable. CT/CT head wo con* [id number] IMPRESSION: 1. No acute abnormality of the brain. 2. Stable mild atrophy of the brain parenchyma. 3. 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 4. Incidental/nonacute findings are listed in the report. Radiation Dose CTDIVOL = (mGy): DLP = 1681.28 (mGy-cm)
--- NOTE | 2020-10-29 17:19 | ECG_ITS ---
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 Measurements Intervals [place] Rate: 77 P: 43 ND: 174 QRS: -3 QRSD: 89 T: 5 QT: 386 QTc: 438 Interpretive Statements SINUS RHYTHM MINIMAL VOLTAGE CRITERIA FOR LVH, CONSIDER NORMAL VARIANT [MEETS CRITERIA IN ONE OF: R(aVL), S(V1), R(V5), R(V5/V6)+S(V1)] Compared to ECG 07/14/2020 14:14:02 ST (T wave) deviation no longer present Electronically Signed On 10-29-2020 19:56:47 SPICE BLENDER by Allyson Dodd M.D. [id number]
--- NOTE | 2020-10-29 17:20 | ED_ITS ---
HPI - Altered Mental Status General: Chief Complaint: Altered Mental Status Stated Complaint: BACK PAIN,AMS, ANXIETY Time Seen by Provider: 10/29/20 16:39 History of Present Illness: HPI narrative: The patient is a 80-year-old female who is a resident of [facility]. She fell a week ago and they were attempting to get an x-ray when she became very anxious. She was given a milligram of Ativan which did not help her. She was very flushed and EMS was called. They report that she said she thought she was at a [facility] and was not responding to questions appropriately. She got the Moderna vaccine yesterday. She has a history of COVID-19 positive on July 16, 2020. On my exam in the room she is flushed in her face and feels warm. She is answering questions appropriately and knows she is at a hospital. Respirating normally satting 98% on room air complaint: altered mental status and confusion Associated symptoms: Deny depression Review of Systems General: Reports: 10 or more systems reviewed and unremarkable except in HPI and below Const: Denies: fatigue Eyes: Denies: change in vision, blurry vision or eye redness ENMT: Denies: throat pain, swelling of lips/tongue, ear or mastoid pain or nasal congestion Card: Denies: chest pain, palpitations, irregular heart rhythm, edema, dyspnea on exertion or orthopnea Resp: Denies: dyspnea, productive cough or non-productive cough GI: Denies: abdominal pain, diarrhea or GI cramping : Denies: flank pain, difficulty voiding, urinary frequency or urinary urgency Musc: Denies: neck pain, back pain, extremity pain, joint pain, joint redness, limited range of motion or muscle weakness Skin/Breast: Reports: rash (facial flushing); Denies: pruritus, erythema, skin pain or skin tenderness Neuro: Denies: headache(s), numbness in extremities, weakness in extremities, sensory changes, difficulty walking, dizziness, confusion or Slurred speech present Psych: Denies: anxiety or depression Endo: Denies: polyuria All/Imm: Denies: urticaria, throat swelling or tongue swelling PFSH ED PFSH: Medical History (Updated 10/29/20 @ 22:21 by Gerardo Fernandez MD) History of high blood pressure History of nonmelanoma skin cancer Parkinsons disease Surgical History 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 Social History Smoking and tobacco status: never smoked Alcohol intake: never Physical Exam Const: COMMON NORMALS: no acute distress, average body habitus, patient o riented x3, no limitations, healthy appearing, alert and well nourished GENERAL APPEARANCE: cooperative, comfortable, well kempt and well developed ORIENTATION/CONSCIOUSNESS: Yes awake, Yes oriented to person, Yes oriented to place and Yes oriented to time HENMT: COMMON NORMALS: normocephalic, external ears normal and Normal external nose present HEAD & SCALP: normal to inspection and normocephalic NOSE: Normal external nose present EXTERNAL EAR: Yes external ears normal MOUTH: Normal oral and palatal mucosa present THROAT: posterior oropharynx normal Eye: COMMON NORMALS: Equal, round and reactive pupils present and EOMs intact bilaterally GENERAL EYE: appearance normal, both eyes and all related structures PUPIL: Yes Equal, round and reactive pupils present Neck/C-Spine: COMMON NORMALS: full ROM, no lymphadenopathy, no meningeal signs and no JVD GENERAL: Yes normal visual inspection Lymph: LYMPHATIC: no lymphadenopathy noted Chest: COMMONS NORMALS: normal inspection of the chest and normal palpation of entire chest wall Resp: COMMON NORMALS: normal respiratory effort, No retractions, No use of accessory muscles, clear to auscultation bilaterally and percussion normal EFFORT & INSPECTION: Yes able to speak in complete sentences AUSCULTATION: clear to auscultation bilaterally PERCUSSION: percussion normal Cardio: COMMON NORMALS: no JVD, regular rate, regular rhythm, S1 normal heart sound present, S2 normal heart sound present and Peripheral pulses 2+ throughout RATE: regular rate RHYTHM: regular rhythm HEART SOUNDS: S1 normal heart sound present and S2 normal heart sound present PERIPHERAL PULSES: Peripheral pulses 2+ throughout GI: COMMON NORMALS: Normal to inspection, nondistended, normoactive bowel sounds present, Soft to palpation, non-tender and no masses INSPECTION: Yes normal to inspection PALPATION: Yes Soft to palpation : COMMON NORMALS: Yes no CVA tenderness BLADDER/KIDNEY EXAM: Yes no CVA tenderness Back/Pelvis: COMMON NORMALS: no CVA tenderness, thoracic and lumbar spine normal to inspection, no thoracic nor lumbar tenderness and thoraco-lumbar ROM normal Extremity: COMMON NORMALS: normal to inspection, full ROM, capillary refill normal, no joint enlargement and no pedal edema GENERAL: Yes normal exam except as noted Neuro: COMMON NORMALS: patient oriented x3, CN's II-XII intact bilaterally, moves all extremities, no focal motor deficits, no sensory deficits noted and gait normal SENSORIUM/ORIENTATION: Yes alert, Yes oriented to person, Yes oriented to place and Yes oriented to time MENINGEAL SIGNS: Yes no meningeal signs Psych: COMMON NORMALS: mental status grossly normal, Normal thought process present, cooperative, normal affect and speech normal APPEARANCE: Yes well kempt ATTITUDE: Yes calm SPEECH: Yes normal speech THOUGHT PROCESS: Normal thought process present Skin: NARRATIVE SKIN EXAM: warm flushing of her face. Course Vital Signs: Vital signs: Vital Signs Temperature 98.3 F 10/29/20 16:40 Pulse Rate 68 10/29/20 22:13 Respiratory Rate 16 10/29/20 22:13 Blood Pressure 160/120 10/29/20 22:13 Pulse Oximetry 98 10/29/20 22:13 MDM - Altered Mental Status MDM Narrative: Medical decision making narrative: The patient came to the ER with increased confusion and altered mental status as well as flushed in the face. She was not febrile on arrival. She did get the majority of vaccine yesterday. She also fell a week ago and there was concern for a head bleed. CT was negative for any acute changes in her head. This was likely an adverse reaction to the coronavirus vaccine. She was given Tylenol and IV fluids and improved to her baseline. Return to the ER with worsening symptoms [facility]. Lab Data: Labs: Lab Results 10/29/20 10/29/20 10/29/20 Range/Units 18:36 20:48 20:48 WBC 6.6 (4.0-10.0) 10^3/ uL RBC 3.43 L (4.1-5.3) 10^6/u L Hgb 10.3 L (11.5-15.3) g/dL Hct 32.3 L (37.0-47.0) % MCV 94.2 (81-99) fL MCH 30.0 (28.0-34.0) pg MCHC 31.9 (30.0-36.0) g/dL RDW 12.8 (12.1-15.1) % Plt Count 343 (130-400) 10^3/c mm MPV 9.2 (7.4-10.4) fL Neut % (Auto) 73.2 % Lymph % (Auto) 14.6 % Kinney % (Auto) 9.7 % Eos % (Auto) 1.4 % Baso % (Auto) 0.6 % Neut # (Auto) 4.81 (1.8-7.7) 10^3/u L Lymph # (Auto) 1.0 (0.8-4.8) 10^3/u L Kinney # (Auto) 0.6 (0.2-0.9) 10^3/u L Eos # (Auto) 0.1 (0.0-0.8) 10^3/u L Baso # (Auto) 0.0 (0.0-0.1) 10^3/u L Nucleated RBC % (a uto) 0 % Nucleated RBCs # 0.0 /100WBC Sodium 135 L (136-145) mmol/L Potassium 3.4 L (3.5-5.1) mmol/L Chloride 101 (98-107) mmol/L Carbon Dioxide 24 (22-29) mmol/L Anion Gap 13.4 (5-19) BUN 11 (8-23) mg/dL Creatinine 0.6 (0.5-0.9) mg/dL GFR Calculation Not Reportable Glucose 109 (65-115) mg/dL Calculated Osmolal ity 280 L (285-295) mOsm/k g Lactate (0.5-2.2) mmol/L Calcium 8.5 (8.5-10.5) mg/dL Total Bilirubin 0.5 (0.15-1.2) mg/dL AST 8 (0-32) U/L ALT < 5 (0-33) U/L Alkaline Phosphata se 145 H (35-105) IU/L Troponin T Baselin e (0-10) ng/L NT-Pro-B Natriuret Pep 578 H (0-450) pg/mL Total Protein 6.0 L (6.6-8.7) g/dL Albumin 3.2 L (3.5-5.2) g/dL Globulin 2.8 (1.3-4.6) g/dL Urine Color Yellow (Yellow) Urine Appearance Clear (CLEAR) Urine pH 6.5 (5-7) Ur Specific Gravit y 1.020 (1.005-1.030) Urine Protein Trace (Negative) Urine Glucose (UA) Norm (Normal) Urine Ketones 1+ H (Negative) Urine Blood Neg (Negative) Urine Nitrate Negative (Negative) Urine Bilirubin Neg (Negative) Urine Urobilinogen Norm (Negative) mg/dL Ur Leukocyte Rafaela ase Negative (Negative) 10/29/20 10/29/20 Range/Units 20:48 20:48 WBC (4.0-10.0) 10^3/ uL RBC (4.1-5.3) 10^6/u L Hgb (11.5-15.3) g/dL Hct (37.0-47.0) % MCV (81-99) fL MCH (28.0-34.0) pg MCHC (30.0-36.0) g/dL RDW (12.1-15.1) % Plt Count (130-400) 10^3/c mm MPV (7.4-10.4) fL Neut % (Auto) % Lymph % (Auto) % Kinney % (Auto) % Eos % (Auto) % Baso % (Auto) % Neut # (Auto) (1.8-7.7) 10^3/u L Lymph # (Auto) (0.8-4.8) 10^3/u L Kinney # (Auto) (0.2-0.9) 10^3/u L Eos # (Auto) (0.0-0.8) 10^3/u L Baso # (Auto) (0.0-0.1) 10^3/u L Nucleated RBC % (a uto) % Nucleated RBCs # /100WBC Sodium (136-145) mmol/L Potassium (3.5-5.1) mmol/L Chloride (98-107) mmol/L Carbon Dioxide (22-29) mmol/L Anion Gap (5-19) BUN (8-23) mg/dL Creatinine (0.5-0.9) mg/dL GFR Calculation Glucose (65-115) mg/dL Calculated Osmolal ity (285-295) mOsm/k g Lactate 0.9 (0.5-2.2) mmol/L Calcium (8.5-10.5) mg/dL Total Bilirubin (0.15-1.2) mg/dL AST (0-32) U/L ALT (0-33) U/L Alkaline Phosphata se (35-105) IU/L Troponin T Baselin e 14 H (0-10) ng/L NT-Pro-B Natriuret Pep (0-450) pg/mL Total Protein (6.6-8.7) g/dL Albumin (3.5-5.2) g/dL Globulin (1.3-4.6) g/dL Urine Color (Yellow) Urine Appearance (CLEAR) Urine pH (5-7) Ur Specific Gravit y (1.005-1.030) Urine Protein (Negative) Urine Glucose (UA) (Normal) Urine Ketones (Negative) Urine Blood (Negative) Urine Nitrate (Negative) Urine Bilirubin (Negative) Urine Urobilinogen (Negative) mg/dL Ur Leukocyte Rafaela ase (Negative) Discharge Plan Discharge Patient Disposition: [facility] Clinical Impression: Adverse reaction to vaccine, Altered mental status Condition: Stable Prescriptions: No Action carbidopa-levodopa 10-100 mg tablet 1 tab PO BID RF: 0 bisoprolol fumarate 10 mg tablet 10 mg PO QDAY RF: 0 amitriptyline 25 mg tablet 25 mg PO QDAY RF: 0 metronidazole 1 % cream 1 applic TOPICAL .twice daily RF: 0 metronidazole [Metrogel] 1 % gel 1 applic TOPICAL DAILY Qty: 60 RF: 2 Discharge Orders: Discharge ED (Routine); Ordered 10/29/20 Ordered By: Gerardo Fernandez Referrals: Christian Caceres MD [Primary Care Provider] - Discharge Diet: Advance as tolerated Discharge Activity: Resume usual activity Patient Instructions: Adverse Drug Reaction (ED) Activity Restrictions/Additional Instructions: You have likely experienced a side effect from the coronavirus vaccine. You came in flushed and were given Tylenol and fluids and improved significantly to your baseline. Please [facility] to help with your symptoms. They may last a few days. Return to the ER with worsening symptoms Coding Level of Care Code ED Dye Colorist Formulator for Chg Fwd Exam Comprehensive
[2020-10-29] MEDS: acetaminophen 325 mg Tablet 650 MG PO (17:38)
[2020-10-29] MEDS: sodium chloride 0.9% 1,000 ML 999 ML IV (17:58)
--- NOTE | 2020-10-29 19:19 | ECG_ITS ---
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 Measurements Intervals [place] Rate: 80 P: 41 NV: 181 QRS: -1 QRSD: 89 T: 0 QT: 379 QTc: 438 Interpretive Statements SINUS RHYTHM MINIMAL VOLTAGE CRITERIA FOR LVH, CONSIDER NORMAL VARIANT [MEETS CRITERIA IN ONE OF: R(aVL), S(V1), R(V5), R(V5/V6)+S(V1)] Compared to ECG 10/29/2020 17:54:53 No significant changes Electronically Signed On 10-29-2020 20:21:18 SENIOR HR GENERALIST by Allyson Dodd M.D. [id number]
[2020-10-29 19:50] LABS: Bilirubin Urine Neg (Negative); Blood Urine Neg (Negative); Glucose Urine UA Norm (Normal); Ketones Urine 1+ (Negative); Leukocyte Esterase Urine Negative (Negative); Nitrate Urine Negative (Negative); Protein Urine Trace (Negative); Urine Appearance Clear (CLEAR); Urine Color Yellow (Yellow); Urobilinogen Urine Norm (Negative); pH Urine 6.5 (5-7)
[2020-10-29 19:57] LABS: Add Urine Microscopic? YES
[2020-10-29 20:53] LABS: Basophils % 0.6 %; Eosinophils # 0.1 10^3/uL (0.0-0.8); Eosinophils % 1.4 %; Hematocrit 32.3 % (37.0-47.0); Hemoglobin 10.3 g/dL (11.5-15.3); Lymphocytes % 14.6 %; Mean Corpuscular HGB Conc 31.9 g/dL (30.0-36.0); Mean Corpuscular Volume 94.2 fL (81-99); Mean Platelet Volume 9.2 fL (7.4-10.4); Monocytes # 0.6 10^3/uL (0.2-0.9); Monocytes % 9.7 %; Neutrophils # 4.81 10^3/uL (1.8-7.7); Neutrophils % 73.2 %; Nucleated Red Blood Cells % 0 %; Platelet Count 343 10^3/cmm (130-400); Red Blood Count 3.43 10^6/uL (4.1-5.3); Red Cell Distribution Width 12.8 % (12.1-15.1); White Blood Count 6.6 10^3/uL (4.0-10.0)
[2020-10-29 21:22] LABS: Lactate (Lactic Acid level) 0.9 mmol/L (0.5-2.2)
[2020-10-29 21:34] LABS: Troponin(5th) Baseline 14 ng/L (0-10)
[2020-10-29 21:41] LABS: Alanine Aminotransferase < 5 U/L (0-33); Albumin Level 3.2 g/dL (3.5-5.2); Alkaline Phosphatase 145 IU/L (35-105); Blood Urea Nitrogen 11 mg/dL (8-23); Calcium 8.5 mg/dL (8.5-10.5); Carbon Dioxide 24 mmol/L (22-29); Chloride 101 mmol/L (98-107); Creatinine Clr Calc Pharmacy 48.2787; Globulin 2.8 g/dL (1.3-4.6); Glucose 109 mg/dL (65-115); NT Pro B Type Natriuretic Pept 578 pg/mL (0-450); Osmolality Calculated 280 mOsm/kg (285-295); Sodium 135 mmol/L (136-145); Total Bilirubin 0.5 mg/dL (0.15-1.2)
[2020-10-29 21:51] LABS: Anion Gap 13.4 (5-19); Aspartate Amino Transferase 8 U/L (0-32); Potassium 3.4 mmol/L (3.5-5.1)
[2020-10-29 23:04] LABS: Troponin 5 2HR 12.22 ng/L (0-10)
[2020-10-29 23:28] LABS: Troponin 5 2HR Delta -1.78 ABS# (0-10)
[2020-10-29] MEDS: LORazepam 2 mg/mL INJ 1 mL 1 MG IVP (23:32)
== END 2020-10-29 23:44 | disposition skilled nursing facility (03) ==
PROVIDERS: Emergency Provider Family Medicine; PCP Family Medicine
DX: T88.1XXA Other complications following immunization, not elsewhere classified, initial encounter (principal); R41.82 Altered mental status, unspecified; G20 Parkinson's disease; I70.0 Atherosclerosis of aorta
CPT/HCPCS: 12345; 36415; 70450; 71045; 80053; 81001; 83605; 83880; 84484; 85025; 93005; 96361; 96374; 99282; 99284; J2060; J7030

== ENCOUNTER → 2020-11-11 10:33 | Outpatient (BNVA) | payer MEDICARE, BC, SELFPAY | PROVIDERS: PCP Family Medicine; Visit Provider Specialist | DX: G31.83 Neurocognitive disorder with Lewy bodies (principal); F02.80 Dementia in other diseases classified elsewhere, unspecified severity, without behavioral disturbance, psychotic disturbance, mood disturbance, and anxiety; G47.52 REM sleep behavior disorder | CPT/HCPCS: 99215 ==

== ENCOUNTER 2020-12-03 20:00 | Outpatient (CLI) | payer MEDICARE, BC, SELFPAY ==
[2020-12-04 18:23] LABS: Add Urine Microscopic? YES; Bacteria Urine 4+ /hpf; Bilirubin Urine 1+ (Negative); Blood Urine 2+ (Negative); Glucose Urine UA Norm (Normal); Ketones Urine Negative (Negative); Leukocyte Esterase Urine 2+ (Negative); Nitrate Urine Negative (Negative); Protein Urine 1+ (Negative); RBC Urine 0-4 /hpf (0-2); Urine Appearance Cloudy (CLEAR); Urine Color Yellow (Yellow); Urobilinogen Urine 1 mg/dL (Negative); WBC Urine TOO NUMEROUS TO CNT /hpf (0-5); pH Urine 5 (5-7)
== END 2020-12-03 20:01 | disposition home or self-care (01) ==
LOC: LAB 12-05 11:56
PROVIDERS: PCP Family Medicine; Visit Provider Family Medicine
DX: N39.0 Urinary tract infection, site not specified (principal)
CPT/HCPCS: 81001; 87086

== ENCOUNTER 2021-02-03 17:30 | Outpatient (CLI) | payer MEDICARE, BC, SELFPAY ==
[2021-02-03 20:00] LABS: Protein Urine Trace (Negative); Urine Appearance Cloudy (CLEAR); Urine Color Yellow (Yellow); pH Urine 5 (5-7)
[2021-02-03 20:01] LABS: Add Urine Microscopic? YES; Bilirubin Urine 1+ (Negative); Blood Urine 2+ (Negative); Glucose Urine UA Norm (Normal); Ketones Urine Negative (Negative); Leukocyte Esterase Urine 2+ (Negative); Nitrate Urine Negative (Negative); RBC Urine 0-4 /hpf (0-2); Urobilinogen Urine Norm (Negative); WBC Urine TOO NUMEROUS TO CNT /hpf (0-5)
[2021-02-03 20:02] LABS: Bacteria Urine 2+ /hpf
== END 2021-02-03 17:31 | disposition home or self-care (01) ==
LOC: LAB 02-04 05:59
PROVIDERS: PCP Family Medicine; Visit Provider Nurse Practitioner Family
DX: N39.0 Urinary tract infection, site not specified (principal); R41.0 Disorientation, unspecified
CPT/HCPCS: 81001; 87077; 87086; 87186

== ENCOUNTER 2021-02-20 03:30 | Outpatient (CLI) | payer MEDICARE, BC, SELFPAY ==
[2021-02-20 12:48] LABS: Add Urine Microscopic? NO; Charge for UA Resulting for Rev
[2021-02-20 13:51] LABS: Bilirubin Urine Neg (Negative); Blood Urine Neg (Negative); Glucose Urine UA Norm (Normal); Ketones Urine Negative (Negative); Leukocyte Esterase Urine Negative (Negative); Nitrate Urine Negative (Negative); Protein Urine Neg (Negative); Urine Appearance Clear (CLEAR); Urine Color Yellow (Yellow); Urobilinogen Urine Norm (Negative); pH Urine 6.5 (5-7)
== END 2021-02-20 03:31 | disposition home or self-care (01) ==
LOC: LAB 12:18
PROVIDERS: PCP Family Medicine
DX: N39.0 Urinary tract infection, site not specified (principal)
CPT/HCPCS: 81003; 87077; 87086; 87186

== ENCOUNTER 2021-02-26 17:11 | Emergency (ER) | payer MEDICARE, BC, SELFPAY ==
[2021-02-26 17:11] VITALS: BP 128/72; PULSE 72; RESP 20; TEMP 36.3; O2SAT 98; BMI 24.3
--- NOTE | 2021-02-26 17:29 | XRR_ITS ---
PROCEDURE INFORMATION: Exam: XR Chest Exam date and time: 02/26/2021 5:31 PM Age: 80 years old Clinical indication: Shortness of breath; Additional info: AMS TECHNIQUE: Imaging protocol: XR of the chest. Views: 1 view. COMPARISON: CR XR chest 1V portable [id number] 10/29/2020 5:21 PM FINDINGS: Lungs: Kyphosis with the patient's chin obscuring the left lung apex. Mild atelectasis or scarring in the lung bases. The lungs are otherwise clear. Pleural spaces: Unremarkable. No pleural effusion. No pneumothorax. Heart/Mediastinum: Unremarkable. No cardiomegaly. Bones/joints: Right rotator cuff arthropathy. XR/XR chest 1V portable [id number] IMPRESSION: 1. No acute findings.
--- NOTE | 2021-02-26 17:29 | CTR_ITS ---
PROCEDURE INFORMATION: Exam: CT Head Without Contrast Exam date and time: 02/26/2021 5:37 PM Age: 80 years old Clinical indication: Altered mental status/memory loss; Additional info: AMS, lethargy TECHNIQUE: Imaging protocol: Computed tomography of the head without contrast. Radiation optimization: All CT scans at this facility use at least one of these dose optimization techniques: automated exposure control; mA and/or kV adjustment per patient size (includes targeted exams where dose is matched to clinical indication); or iterative reconstruction. COMPARISON: CT head wo con* [id number] 10/29/2020 5:37 PM RADIATION DOSE METRICS: Total DLP (mGy-cm): 531.66 FINDINGS: Brain: Mild diffuse cortical volume loss. Mild hypodensities in supratentorial periventricular and subcortical white matter, consistent with microangiopathy. No intracranial hemorrhage. Cerebral ventricles: No ventriculomegaly. Bones/joints: Unremarkable. No acute fracture. Paranasal sinuses: Visualized sinuses are unremarkable. No fluid levels. Mastoid air cells: Visualized mastoid air cells are well aerated. Vasculature: No hyperdense artery. Soft tissues: Unremarkable. Other findings: Patient's head is malpositioned within the CT gantry. CT/CT head wo con* [id number] IMPRESSION: 1. No acute intracranial abnormality. 2. Mild microangiopathy. Radiation Dose CTDIVOL = (mGy): DLP = 531.66 (mGy-cm)
[2021-02-26 17:38] LABS: Basophils % 0.5 %; Eosinophils # 0.1 10^3/uL (0.0-0.8); Eosinophils % 0.9 %; Hematocrit 37.4 % (37.0-47.0); Hemoglobin 11.9 g/dL (11.5-15.3); Lymphocytes # 1.7 10^3/uL (0.8-4.8); Lymphocytes % 19.3 %; Mean Corpuscular HGB Conc 31.8 g/dL (30.0-36.0); Mean Corpuscular Hemoglobin 30.1 pg (28.0-34.0); Mean Corpuscular Volume 94.4 fL (81-99); Mean Platelet Volume 10.1 fL (7.4-10.4); Monocytes # 0.6 10^3/uL (0.2-0.9); Monocytes % 6.7 %; Neutrophils # 6.19 10^3/uL (1.8-7.7); Neutrophils % 72.4 %; Nucleated Red Blood Cells % 0 %; Platelet Count 409 10^3/cmm (130-400); Red Blood Count 3.96 10^6/uL (4.1-5.3); Red Cell Distribution Width 13.9 % (12.1-15.1); White Blood Count 8.6 10^3/uL (4.0-10.0)
[2021-02-26 18:08] LABS: Alanine Aminotransferase 6 U/L (0-33); Albumin Level 4.2 g/dL (3.5-5.2); Alkaline Phosphatase 129 IU/L (35-105); Aspartate Amino Transferase 16 U/L (0-32); Blood Urea Nitrogen 12 mg/dL (8-23); Calcium 9.2 mg/dL (8.5-10.5); Carbon Dioxide 24 mmol/L (22-29); Chloride 104 mmol/L (98-107); Globulin 3.2 g/dL (1.3-4.6); Glucose 93 mg/dL (65-115); Osmolality Calculated 291 mOsm/kg (285-295); Sodium 141 mmol/L (136-145); Total Bilirubin 0.3 mg/dL (0.15-1.2); Total Protein 7.4 g/dL (6.6-8.7)
--- NOTE | 2021-02-26 18:25 | ED_ITS ---
HPI - Altered Mental Status General: Chief Complaint: Altered Mental Status Stated Complaint: AMS/ LETHARGY Time Seen by Provider: 02/26/21 17:14 History of Present Illness: HPI narrative: Patient was brought from an extended care facility due to altered mental status lethargy and sleeping too much. I am I am able to obtain any HPI from the patient. Per EMS patient was given Xanax earlier for sedation due to agitation. 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 Social History Smoking and tobacco status: never smoked Alcohol intake: never History of recent travel: No Physical Exam Narrative: EXAM NARRATIVE: General: sleeping, no distress Head: atraumatic HEENT: normal eyes, normal conjunctiva, normal hearing, normal external nose, normal mouth, mucous membranes moist Neck: FROM, trachea midline Chest: normal expansion, no gross deformities Resp: no retractions, no accessory muscle use, CTA bilaterally Cardio: regular rate and rhythm and no murmur, no peripheral edema, normal peripheral pulses GI: soft, flat non tender, no guarding normal BS : deferred Musculoskeletal: FROM, no pain or gross deformities Neuro: cannot assess, pt non verbal, moves all extremities but is in a position with head against a pillow CN II-XII grossly intact, normal coordination, normal speech Skin: no rashes Psych: cooperative, normal mood and effect Course Vital Signs: Vital signs: Vital Signs Temperature 97.4 F L 02/26/21 17:11 Pulse Rate 81 02/26/21 18:59 Respiratory Rate 20 H 02/26/21 17:11 Blood Pressure 142/83 02/26/21 18:59 Pulse Oximetry 97 02/26/21 18:59 MDM - Altered Mental Status MDM Narrative: Medical decision making narrative: I will check some basic labs including a CT of her head chest x-ray and urinalysis if this does not show any acute findings is most likely lethargy from her Xanax that she was given earlier Six thirty patient came back from CAT scan she was awake alert she was talkative did not want a S catheter according to patient and a remote EMS or nursing report that they had collected a urine on her yesterday patient does have some dementia she is appropriate follows commands I am not going to force the urine on her at the [facility] can obtain one on her at the facility as she has a normal white count and does not appear to be septic she was probably overmedicated or having effects of medication Medical Records: Attestation: I reviewed the patient's medical records. Lab Data: Attestation: I reviewed the patient's lab results. Labs: Lab Results 02/26/21 02/26/21 02/26/21 Range/Units 16:55 16:55 17:55 WBC 8.6 (4.0-10.0) 10^3/ uL RBC 3.96 L (4.1-5.3) 10^6/u L Hgb 11.9 (11.5-15.3) g/dL Hct 37.4 (37.0-47.0) % MCV 94.4 (81-99) fL MCH 30.1 (28.0-34.0) pg MCHC 31.8 (30.0-36.0) g/dL RDW 13.9 (12.1-15.1) % Plt Count 409 H (130-400) 10^3/c mm MPV 10.1 (7.4-10.4) fL Neut % (Auto) 72.4 % Lymph % (Auto) 19.3 % Rankin % (Auto) 6.7 % Eos % (Auto) 0.9 % Baso % (Auto) 0.5 % Neut # (Auto) 6.19 (1.8-7.7) 10^3/u L Lymph # (Auto) 1.7 (0.8-4.8) 10^3/u L Rankin # (Auto) 0.6 (0.2-0.9) 10^3/u L Eos # (Auto) 0.1 (0.0-0.8) 10^3/u L Baso # (Auto) 0.0 (0.0-0.1) 10^3/u L Nucleated RBC % (a uto) 0 % Nucleated RBCs # 0.0 /100WBC Sodium 141 (136-145) mmol/L Potassium 4.0 (3.5-5.1) mmol/L Chloride 104 (98-107) mmol/L Carbon Dioxide 24 (22-29) mmol/L Anion Gap 17.0 (5-19) BUN 12 (8-23) mg/dL Creatinine 0.6 (0.5-0.9) mg/dL GFR Calculation Not Reportable Glucose 93 (65-115) mg/dL Calculated Osmolal ity 291 (285-295) mOsm/k g Lactate 1.0 (0.5-2.2) mmol/L Calcium 9.2 (8.5-10.5) mg/dL Total Bilirubin 0.3 (0.15-1.2) mg/dL AST 16 (0-32) U/L ALT 6 (0-33) U/L Alkaline Phosphata se 129 H (35-105) IU/L Total Protein 7.4 (6.6-8.7) g/dL Albumin 4.2 (3.5-5.2) g/dL Globulin 3.2 (1.3-4.6) g/dL Discharge Plan Discharge Patient Disposition: [facility] Clinical Impression: Drug side effects, Dementia Condition: Stable Prescriptions: No Action bisoprolol fumarate 10 mg tablet 10 mg PO QDAY RF: 0 amitriptyline 25 mg tablet 25 mg PO QDAY RF: 0 metronidazole 1 % cream 1 applic TOPICAL .twice daily RF: 0 metronidazole [Metrogel] 1 % gel 1 applic TOPICAL DAILY Qty: 60 RF: 2 acetaminophen 500 mg capsule 1,000 mg PO Q6H PRNRF: 0 alprazolam 0.25 mg tablet 0.25 mg PO BID PRNRF: 0 senna 8.6 mg capsule 17.2 mg PO DAILY RF: 0 quetiapine [Seroquel] 25 mg tablet 25 mg PO BID Qty: 60 RF: 0 Discharge Orders: Discharge ED (Routine); Ordered 02/26/21 Ordered By: Mihaela Yip Referrals: Christian Caceres MD [Primary Care Provider] - Activity Restrictions/Additional Instructions: CT of her head her chest x-ray laboratory work was unremarkable. Patient would not provide us a urine sample refused to let us do a urinary cath there was some talk that possibly your facility had checked one yesterday if not I do recommend you go ahead and check 1 her white blood cell count was normal. Patient was awake and alert and appropriate her lethargy could possibly be due to medication side effect if you gave her Xanax. Follow-up with her provider. Discharge instructions Coding Level of Care Code ED Process Steward for Lin Daniel
[2021-02-26 18:59] VITALS: BP 142/83; PULSE 81; O2SAT 97
[2021-02-26 19:00] VITALS: BP 166/82; PULSE 81; RESP 22; O2SAT 96
[2021-02-26 20:00] VITALS: BP 146/100; PULSE 86; RESP 22; O2SAT 98
[2021-02-26 20:32] VITALS: BP 146/100; PULSE 86; RESP 22; O2SAT 98
== END 2021-02-26 20:25 ==
PROVIDERS: Emergency Provider Emergency Medicine; PCP Family Medicine
DX: F03.90 Unspecified dementia, unspecified severity, without behavioral disturbance, psychotic disturbance, mood disturbance, and anxiety (principal); T88.7XXA Unspecified adverse effect of drug or medicament, initial encounter; T50.905A Adverse effect of unspecified drugs, medicaments and biological substances, initial encounter; G20 Parkinson's disease
CPT/HCPCS: 36415; 70450; 71045; 80053; 83605; 85025; 99283

== ENCOUNTER → 2021-03-18 08:33 | Outpatient (BNVA) | payer MEDICARE, BC, SELFPAY | PROVIDERS: PCP Family Medicine; Visit Provider Specialist | DX: G31.83 Neurocognitive disorder with Lewy bodies (principal); F02.80 Dementia in other diseases classified elsewhere, unspecified severity, without behavioral disturbance, psychotic disturbance, mood disturbance, and anxiety | CPT/HCPCS: 99213 ==

== ENCOUNTER 2021-08-28 08:40 | Emergency (ER) | payer MEDICARE, BC, SELFPAY ==
[2021-08-28 08:43] VITALS: BP 153/62; PULSE 75; RESP 12; TEMP 36.4; O2SAT 94; BMI 24.3
[2021-08-28 08:55] VITALS: BP 153/62; PULSE 72; RESP 20; O2SAT 92
--- NOTE | 2021-08-28 09:06 | CT_ITS ---
WS: [id number] CT ABDOMEN PELVIS TECHNIQUE: Contrast-enhanced CT of the abdomen and pelvis with coronal and sagittal reformatted image s. CLINICAL INFORMATION: abd pain COMPARISON: 2016 DLP: 1739.[address] scans at [facility] use at least one of these dose optimization techniques: automated e xposure control; mA and/or kV adjustment per patient size (includes targeted exams where dose is matc hed to clinical indication); or iterative reconstruction. FINDINGS: Subsegmental atelectasis in the lung bases. Diffuse fatty infiltration liver. Normal portal vein and splenic vein. Fluid distended gallbladder. No gallbladder wall thickening or pericholecystic fluid. F at-containing umbilical hernia. No herniated bowel. Small esophageal hiatal hernia. Fatty atrophy of the pancreas. Normal caliber abdominal aorta. Aortic calcification. Normal renal parenchymal enhancement. No hydronephrosis. Adrenal glands are normal. S mall left renal cyst. Aortic calcification. Dense rectosigmoid constipation. Distended rectum. Divert iculosis. No evidence of high-grade small or large bowel obstruction. No abdominal or pelvic lymphade nopathy. No inguinal lymphadenopathy. Lumbar scoliosis. Advanced spondylitic changes lumbar spine. Chronic appearing biconcave compression fractures L2 and L3. Grade 1 anterolisthesis L5 on S1 with chronic spondylolysis. CT/CT abdomen pelvis w con* [id number] IMPRESSION: 1. Dense rectosigmoid constipation with distended rectum. Sigmoid constipation . 2. Sigmoid diverticulosis. No evidence of acute diverticulitis. 3. Fluid distended gallbladder. No pericholecystic fluid or gallbladder wall t hickening. 4. Mild diffuse fatty infiltration liver. 5. Small esophageal hiatal hernia. 6. Chronic appearing biconcave compression fractures L2 and L3. 7. Fat-containing umbilical hernia with herniated omental fat
--- NOTE | 2021-08-28 09:06 | CT_ITS ---
WS: [id number] CT HEAD TECHNIQUE: Noncontrast CT of the head obtained from the skullbase to the vertex. CLINICAL INFORMATION: new seizures COMPARISON: February 26, 2021 DLP: 708.[address] scans at [facility] use at least one of these dose optimization techniques: automated e xposure control; mA and/or kV adjustment per patient size (includes targeted exams where dose is matc hed to clinical indication); or iterative reconstruction. FINDINGS: No evidence of intracranial hemorrhage or mass effect. Ventricular system and basal cisterns are vo nt. Moderate small vessel changes with moderate parenchymal volume loss. No extra-axial fluid collect ions. No evidence of mass or mass effect. Normal cain-white differentiation. Paranasal sinuses and mastoid air cells are well aerated. .Normal visualized soft tissues. CT/CT head wo con* [id number] IMPRESSION: 1. No evidence of intracranial hemorrhage or mass effect. 2. Moderate small vessel changes. Moderate parenchymal volume loss. 3. No acute intracranial findings.
--- NOTE | 2021-08-28 09:06 | XR_ITS ---
WS: [id number] Exam: XR chest 1V portable [id number] Date/Time of Exam: 08/28/2021 9:09 AM Reason For Exam: dyspnea/cough Comparison 02/26/2021. The lungs are fully expanded and clear. Mild cardiac enlargement. Trace right basal pleural effusion. High riding humeral head most likely indicating long-standing rotator cuff tear. Remaining bony stru ctures appear to be intact XR/XR chest 1V portable [id number] IMPRESSION: 1. Small right basal pleural effusion. 2. Cardiac enlargement unchanged. 3. No acute pulmonary infiltrate or other significant finding.
--- NOTE | 2021-08-28 09:26 | PC.PHAR ---
pt is from [facility]-brandy collins nurse at [facility] states the pt took 2 of her am meds
--- NOTE | 2021-08-28 09:30 | W.ED.SEIZURE ---
HPI - Seizure General: Chief Complaint: Seizure Stated Complaint: SEIZURE LIKE ACTIVITY, N/V, CONFUSION Time Seen by Provider: 08/28/21 08:54 History of Present Illness: HPI Narrative: 81-year-old female presents from the intermediate. She had been in her normal state of health this morning she has Parkinson's's movement disorder and gait disorder. She began having nausea and vomiting. Staff was concerned she may have had another stroke she is had stroke previously is complaining of continued nausea and still having vomiting while I was examining her. She did receive Zofran in route. She is moving all extremities and speaking clearly her daughters at the bedside and reports she does not notice any change in her speech. Due to her Parkinson's and some suspected mild dementia she is very difficult if not impossible to do an NIH score on. She has no facial asymmetry and moves all extremities equally. Onset (ago): minute(s) Witnessed: Yes - by Other (caregiver) Seizure History: No Place: [facility] Possible Precipitating Event: none Associated symptoms: Reports confusion; Deny chest pain, chills, cough, diaphoresis, fever(s), anorexia, malaise, rash, short of breath, syncope or weakness Treatments prior to arrival: none Review of Systems Const: Denies: fever(s), chills, malaise or diaphoresis ENMT: Denies: throat pain, ear or mastoid pain, nasal discharge or nasal congestion Card: Denies: chest pain or syncope Resp: Denies: dyspnea, productive cough or non-productive cough GI: Reports: nausea and vomiting; Denies: abdominal pain, diarrhea, constipation, bloating, hematochezia or melena : Denies: flank pain, difficulty voiding, dysuria, urinary frequency or urinary urgency Skin/Breast: Denies: rash or pruritus Neuro: Reports: confusion PFSH ED PFSH: Medical History (Updated 08/28/21 @ 12:36 by Reggie Nesbitt DO) History of high blood pressure History of nonmelanoma skin cancer Parkinsons disease Surgical History 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 Social History Smoking and tobacco status: never smoked Alcohol intake: never History of recent travel: No Physical Exam Const: COMMON NORMALS: no acute distress GENERAL APPEARANCE: cooperative and comfortable ORIENTATION/CONSCIOUSNESS: Yes awake, Yes oriented to person, Yes oriented to place and Yes oriented to time HENMT: COMMON NORMALS: normocephalic, atraumatic and hearing grossly normal bilaterally HEAD & SCALP: normocephalic and atraumatic Neck/C-Spine: COMMON NORMALS: full ROM, no lymphadenopathy, supple and no JVD Resp: COMMON NORMALS: normal respiratory effort, No retractions, No use of accessory muscles and clear to auscultation bilaterally AUSCULTATION: clear to auscultation bilaterally Cardio: COMMON NORMALS: no JVD, regular rate, regular rhythm and No murmurs present (Cardio) RATE: regular rate RHYTHM: regular rhythm GI: COMMON NORMALS: Soft to palpation and No hepatosplenomegaly present AUSCULTATION: Yes normoactive bowel sounds PALPATION: Yes Soft to palpation, No Tenderness to palpation present (GI), No Guarding due to palpation present (GI) and Yes No hepatosplenomegaly present Extremity: COMMON NORMALS: normal to inspection, capillary refill normal, no clubbing, cyanosis or edema, no calf tenderness and no pedal edema Neuro: SENSORIUM/ORIENTATION: Yes oriented to person, Yes oriented to place and Yes oriented to time Skin: COMMON NORMALS: no rashes or lesions noted GENERAL SKIN EXAM: no rashes or lesions noted Course Vital Signs: Vital signs: Vital Signs Temperature 97.6 F 08/28/21 08:43 Pulse Rate 101 H 08/28/21 13:05 Respiratory Rate 16 08/28/21 12:21 Blood Pressure 143/70 08/28/21 13:05 Pulse Oximetry 95 08/28/21 13:05 MDM - Seizure MDM Narrative: Medical decision making narrative: Difficult to assess because of her dementia but no focal neurologic deficits found. Discussed with the family. Initially she had some vomiting and was somewhat somnolent but that improved. At this point they prefer to just go back to the intermediate I think that is appropriate just observe for now if any changes return. Lab Data: Labs: Lab Results 08/28/21 08/28/21 08/28/21 09:20 09:20 11:45 WBC 8.7 10^3/uL 10^3/ uL (4.0-10.0) RBC 4.04 10^6/uL L 10 ^6/uL (4.1-5.3) Hgb 11.9 g/dL g/dL (11.5-15.3) Hct 35.9 % L % (37.0-47.0) MCV 88.9 fl fl (81-99) MCH 29.5 pg pg (28.0-34.0) MCHC 33.1 g/dL g/dL (30.0-36.0) RDW 12.8 % % (12.1-15.1) Plt Count 392 10^3/cmm 10^3 /cmm (130-400) MPV 9.3 fL fL (7.4-10.4) Neut % (Auto) 71.6 % % Lymph % (Auto) 17.3 % % [place] % (Auto) 5.3 % % Eos % (Auto) 4.6 % % Baso % (Auto) 0.7 % % Neut # (Auto) 6.25 10^3/uL 10^3 /uL (1.8-7.7) Lymph # (Auto) 1.5 10^3/uL 10^3/ uL (0.8-4.8) [place] # (Auto) 0.5 10^3/uL 10^3/ uL (0.2-0.9) Eos # (Auto) 0.4 10^3/uL 10^3/ uL (0.0-0.8) Baso # (Auto) 0.1 10^3/uL 10^3/ uL (0.0-0.1) Nucleated RBC % (a uto) 0 % % Nucleated RBCs # 0.0 /100WBC /100W BC Sodium 139 mmol/L mmol/L (136-145) Potassium 3.9 mmol/L mmol/L (3.5-5.1) Chloride 101 mmol/L mmol/L (98-107) Carbon Dioxide 24 mmol/L mmol/L (22-29) Anion Gap 17.9 (5-19) BUN 19 mg/dL mg/dL (8-23) Creatinine 0.5 mg/dL mg/dL (0.5-0.9) GFR Calculation Not Reportable Glucose 152 mg/dL H mg/dL (65-115) Calculated Osmolal ity 293 mOsm/kg mOsm/ kg (285-295) Calcium 8.7 mg/dL mg/dL (8.5-10.5) Magnesium 2.0 mg/dL mg/dL (1.7-2.3) Total Bilirubin 0.3 mg/dL mg/dL (0.15-1.2) AST 23 U/L U/L (0-32) ALT 15 U/L U/L (0-33) Alkaline Phosphata se 125 IU/L H IU/L (35-105) Creatine Kinase 60 U/L U/L (26-192) Total Protein 7.4 g/dL g/dL (6.6-8.7) Albumin 3.9 g/dL g/dL (3.5-5.2) Globulin 3.5 g/dL g/dL (1.3-4.6) Urine Color Yellow (Yellow) Urine Appearance Clear (CLEAR) Urine pH 7 (5-7) Ur Specific Gravit y 1.005 (1.005-1.030) Urine Protein Neg (Negative) Urine Glucose (UA) Norm (Normal) Urine Ketones Negative (Negative) Urine Blood Neg (Negative) Urine Nitrate Negative (Negative) Urine Bilirubin Neg (Negative) Urine Urobilinogen Norm mg/dL mg/dL (Negative) Ur Leukocyte Rafaela ase Negative (Negative) Discharge Plan Discharge Patient Disposition: Home Clinical Impression: Lewy body dementia Condition: Stable Prescriptions: No Action acetaminophen 500 mg capsule 1,000 mg PO BID@08,20 RF: 0 alprazolam 0.25 mg tablet 0.25 mg PO BID PRN (Reason: Anxiety) RF: 0 quetiapine [Seroquel] 25 mg tablet See Rx Instructions PO BID Qty: 90 RF: 5 Dulcolax (bisacodyl) 5 mg Tablet,Delayed Release (Dr/Ec) 10 mg PO DAILY PRN (Reason: Constipation) RF: 0 clotrimazole 1 % Cream 1 applic TOPICAL BID RF: 0 Tylenol 325 mg Tablet 650 mg PO Q6H PRN (Reason: Pain) RF: 0 Senna-S 8.6-50 mg Tablet 2 tab PO BEDTIME PRN (Reason: Constipation) RF: 0 Milk of Magnesia 400 mg/5 mL Suspension 30 ml PO Q72H PRN (Reason: Constipation) RF: 0 Dulcolax (bisacodyl) 10 mg Suppository 10 mg VT DAILY PRN (Reason: Constipation) RF: 0 Fleet Enema 19-7 gram/118 mL Enema 118 ml VT DAILY PRN (Reason: Constipation) RF: 0 ropinirole 2 mg tablet extended release 24 hr 2 mg PO DAILY@08 RF: 0 Discharge Orders: Discharge ED (Routine); Ordered 08/28/21 Ordered By: Reggie Nesbitt Referrals: Christian Caceres MD [Primary Care Provider] - Discharge Diet: Usual diet Discharge Activity: Resume usual activity Patient Instructions: Opioid Safety Coding Level of Care Code ED Control Manager for Chg Fwd Exam Comprehensive
[2021-08-28 09:40] LABS: Basophils # 0.1 10^3/uL (0.0-0.1); Basophils % 0.7 %; Eosinophils # 0.4 10^3/uL (0.0-0.8); Eosinophils % 4.6 %; Hematocrit 35.9 % (37.0-47.0); Hemoglobin 11.9 g/dL (11.5-15.3); Lymphocytes # 1.5 10^3/uL (0.8-4.8); Lymphocytes % 17.3 %; Mean Corpuscular HGB Conc 33.1 g/dL (30.0-36.0); Mean Corpuscular Hemoglobin 29.5 pg (28.0-34.0); Mean Corpuscular Volume 88.9 fl (81-99); Mean Platelet Volume 9.3 fL (7.4-10.4); Monocytes # 0.5 10^3/uL (0.2-0.9); Monocytes % 5.3 %; Neutrophils # 6.25 10^3/uL (1.8-7.7); Neutrophils % 71.6 %; Nucleated Red Blood Cells % 0 %; Platelet Count 392 10^3/cmm (130-400); Red Blood Count 4.04 10^6/uL (4.1-5.3); Red Cell Distribution Width 12.8 % (12.1-15.1); White Blood Count 8.7 10^3/uL (4.0-10.0)
[2021-08-28] MEDS: metoclopramide 5 mg/mL SDV 2 mL 10 MG IVP (09:56)
[2021-08-28 10:06] LABS: Alanine Aminotransferase 15 U/L (0-33); Albumin Level 3.9 g/dL (3.5-5.2); Alkaline Phosphatase 125 IU/L (35-105); Anion Gap 17.9 (5-19); Aspartate Amino Transferase 23 U/L (0-32); Blood Urea Nitrogen 19 mg/dL (8-23); Calcium 8.7 mg/dL (8.5-10.5); Carbon Dioxide 24 mmol/L (22-29); Chloride 101 mmol/L (98-107); Creatine Phosphokinase 60 U/L (26-192); Globulin 3.5 g/dL (1.3-4.6); Glucose 152 mg/dL (65-115); Osmolality Calculated 293 mOsm/kg (285-295); Potassium 3.9 mmol/L (3.5-5.1); Sodium 139 mmol/L (136-145); Total Bilirubin 0.3 mg/dL (0.15-1.2); Total Protein 7.4 g/dL (6.6-8.7)
[2021-08-28 10:46] VITALS: BP 146/75; PULSE 75; RESP 18; O2SAT 94
[2021-08-28] MEDS: iohexol 300 mg/mL 100 mL Btl IV (10:56)
[2021-08-28 11:57] LABS: Add Urine Microscopic? NO; Charge for UA Resulting for Rev
[2021-08-28 12:00] LABS: Bilirubin Urine Neg (Negative); Blood Urine Neg (Negative); Glucose Urine UA Norm (Normal); Ketones Urine Negative (Negative); Leukocyte Esterase Urine Negative (Negative); Nitrate Urine Negative (Negative); Protein Urine Neg (Negative); Specific Gravity, Urine 1.005 (1.005-1.030); Urine Appearance Clear (CLEAR); Urine Color Yellow (Yellow); Urobilinogen Urine Norm (Negative); pH Urine 7 (5-7)
[2021-08-28 12:21] VITALS: BP 127/67; PULSE 79; RESP 16; O2SAT 94
[2021-08-28 12:33] VITALS: BP 149/92; PULSE 99; O2SAT 98
[2021-08-28 13:05] VITALS: BP 143/70; PULSE 101; O2SAT 95
== END 2021-08-28 13:25 | disposition home or self-care (01) ==
PROVIDERS: Emergency Provider Family Medicine; PCP Family Medicine
DX: G31.83 Neurocognitive disorder with Lewy bodies (principal); F02.80 Dementia in other diseases classified elsewhere, unspecified severity, without behavioral disturbance, psychotic disturbance, mood disturbance, and anxiety; Z85.828 Personal history of other malignant neoplasm of skin; Z86.79 Personal history of other diseases of the circulatory system
CPT/HCPCS: 70450; 71045; 74177; 80053; 81003; 82550; 83735; 85025; 96374; 99283; J2765; Q9967